=== PATIENT | female | born 2000 | race Caucasian/White ===

== ENCOUNTER 2022-11-11 17:00 | Outpatient (CLI) | payer MEDICAID, SELFPAY | END 2022-11-11 17:01 | disposition home or self-care (01) | PROVIDERS: PCP Family Medicine; Visit Provider Registered Nurse | DX: Z34.93 Encounter for supervision of normal pregnancy, unspecified, third trimester (principal); Z3A.29 29 weeks gestation of pregnancy | CPT/HCPCS: 80306; 86592; 87491; 87591 ==

== ENCOUNTER 2022-11-24 12:55 | Outpatient (CLI) | payer MEDICAID, SELFPAY ==
--- NOTE | 2022-11-24 13:00 | CRLHL7_ITS ---
For Patients: As a result of the Century Cures Act, medical imaging exams and procedure reports are released immediately into your electronic medical record. You may view this report before your referring provider. If you have questions, please contact your health care provider. INDICATION: Third trimester scan, evaluate growth. COVID in . COMPARISON: 09/11/2022 TECHNIQUE: Real time porras scale imaging of the fetus was performed. FINDINGS: Sonographic imaging demonstrates a single living intrauterine gestation. Fetus demonstrates a regular cardiac rate of 129 beats per minute. Fetus has a vertex position. The placenta lies posteriorly without evidence of placenta previa. Amniotic fluid volume appears normal and there is a single deepest vertical pocket: 4.4 cm. The estimated weight is 1814gm which lies at the 56th %. On the prior OB ultrasound exam dated 09/11/2022 the estimated weight was at the 36th%. BPD 86th percentile. HC 52nd percentile. AC 54th percentile. FL 48th percentile. The HC/AC ratio measures 1.08 range (0.96-1.14). IMPRESSION: Sonographic gestational age 32 weeks 1 day and sonographic due date 01/18/2023. Sonographic age is 1 week ahead of the clinical age. Estimated weight 56th percentile. Abdominal circumference 54th percentile. Posterior placenta. No evidence of previa. Dictated by Robert Neal MD @ 11/25/2022 6:52:56 AM (Electronically Signed)
== END 2022-11-24 12:56 | disposition home or self-care (01) ==
PROVIDERS: Visit Provider Registered Nurse
DX: O98.513 Other viral diseases complicating pregnancy, third trimester (principal); U07.1 COVID-19; Z3A.32 32 weeks gestation of pregnancy
CPT/HCPCS: 76816

== ENCOUNTER 2022-12-26 13:49 | Outpatient (CLI) | payer MEDICAID, SELFPAY ==
[2022-12-27 12:03] LABS: Strep B DNA Probe NEGATIVE (Negative)
[2022-12-27 12:05] LABS: Strep B Pen/Amox Allergy No
== END 2022-12-26 13:50 | disposition home or self-care (01) ==
LOC: NFLDREF 13:49
PROVIDERS: Visit Provider Obstetrics & Gynecology
DX: Z34.93 Encounter for supervision of normal pregnancy, unspecified, third trimester (principal); Z3A.37 37 weeks gestation of pregnancy
CPT/HCPCS: 76816; 87081; 87653

== ENCOUNTER 2023-01-08 14:48 | Outpatient (CLI) | payer MEDICAID, SELFPAY ==
[2023-01-08] VITALS (9 sets, daily range): BP systolic 126–140; BP diastolic 62–81; PULSE 85–101; RESP 16; TEMP 36.8; O2SAT 98–99
[2023-01-08 15:25] LABS: Hematocrit 34.4 % (33.0-51.0); Hemoglobin* 11.5 gm/dL (12.0-16.0); Mean Corpuscular HGB Conc 33 gm/dL (32-36); Mean Corpuscular Hemoglobin 29 pg (26-34); Mean Corpuscular Volume 85 fL (80-100); Platelet Count* 279 K/uL (140-440); Red Blood Count 4.04 m/uL (4.00-5.20); White Blood Count* 9.26 K/uL (4.50-11.00)
[2023-01-08 15:42] LABS: Alanine Aminotransferase* 50 U/L (4-35); Aspartate Amino Transferase* 30 U/L (12-35); Blood Urea Nitrogen* 11 mg/dL (5-24); Creatinine* 0.5 mg/dL (0.5-1.5); Estimated Glomerular Filt Rate 135 ml/min
[2023-01-08 15:43] LABS: INR 0.85 (0.91-1.10); Prothrombin Time 12.2 Seconds
[2023-01-08 15:47] LABS: Slide Review Reflex No
[2023-01-08 17:14] LABS: Total Protein Urine < 5 mg/dL
[2023-01-08 17:15] LABS: Creatinine Urine 175.6 mg/dL
--- NOTE | 2023-01-08 18:27 | PC.OBNST ---
NST Note NST Note Start: 01/08/23 14:58 Freq: ONCE Status: Active Protocol: Document 01/08/23 17:55 CUDDYH (Rec: 01/08/23 18:27 CUDDYH [id number]) NST Note 2 Para (# of births) 0 EDC 01/25/23 Gestational Age In Weeks & Days 37 Weeks & 4 Days High Risk Factors High Blood Pressure - Gestational Other Complaints Pt sent from clinic to Center for R/O Pre eclampsia. Reactive Yes Appropriate for Gestational Age Yes RN Mouna Chacon RN Date 01/08/23 Reactive Yes Appropriate for Gestational Age Yes MELISSA Lay RN Date 01/08/23 OB NST charge Yes Complete NST Note via Write Note Yes The provider's electronic signature indicates the NST is reactive/appropriate for gestational age. *Note to provider: If an addendum is required, open the patient's chart and click on the note under the Nurse/Allied Health tab.
== END 2023-01-08 17:55 | disposition home or self-care (01) ==
LOC: OB OUT 14:49 → OB 14:50
PROVIDERS: Visit Provider Obstetrics & Gynecology
DX: O13.3 Gestational [pregnancy-induced] hypertension without significant proteinuria, third trimester (principal); Z3A.37 37 weeks gestation of pregnancy
CPT/HCPCS: 36415; 59025; 82565; 82570; 84156; 84450; 84460; 84520; 85027; 85610; 99213

== ENCOUNTER 2023-01-09 08:33 | Inpatient (IN) | payer MEDICAID, SELFPAY ==
[2023-01-09] VITALS (27 sets, daily range): BP systolic 118–144; BP diastolic 62–84; PULSE 15–99; RESP 16–18; TEMP 36.6–36.9; O2SAT 81–96; BMI 43.3
[2023-01-09 05:30] LABS: Appearance Urine Clear (Clear); Bilirubin Urine Negative (Negative); Blood Urine Negative (Negative); Color Urine Yellow (Yellow); Glucose Urine Negative (Negative); Ketones Urine Negative (Negative); Leukocyte Esterase Urine Negative (Negative); Nitrite Urine Negative (Negative); Protein Urine Negative (Negative); Urobilinogen Urine 0.2 (0.2-1.0)
[2023-01-09 05:37] LABS: Amphetamine Screen Urine Negative (Negative); Barbiturate Screen Urine Negative (Negative); Benzodiazepines Screen Urine Negative (Negative); Cocaine Screen Urine Negative (Negative); Methadone Screen Urine Negative (Negative); Methamphetamines Screen Urine Negative (Negative); Opiate Screen Urine Negative (Negative); Oxycodone Screen Urine Negative (Negative); Phencyclidine Screen Urine Negative (Negative); Tricyclic Antidepressant Urine Negative (Negative)
[2023-01-09 05:48] LABS: Cannabinoid Screen Urine POSITIVE (Negative)
[2023-01-09 06:12] LABS: Hematocrit 35.6 % (33.0-51.0); Hemoglobin* 11.8 gm/dL (12.0-16.0); Mean Corpuscular HGB Conc 33 gm/dL (32-36); Mean Corpuscular Hemoglobin 28 pg (26-34); Mean Corpuscular Volume 86 fL (80-100); Platelet Count* 307 K/uL (140-440); Red Blood Count 4.15 m/uL (4.00-5.20); White Blood Count* 10.41 K/uL (4.50-11.00)
[2023-01-09 06:15] LABS: Slide Review Reflex No
[2023-01-09 06:33] LABS: Creatinine* 0.5 mg/dL (0.5-1.5); Estimated Glomerular Filt Rate 135 ml/min
[2023-01-09 06:34] LABS: Alanine Aminotransferase* 56 U/L (4-35); Aspartate Amino Transferase* 37 U/L (12-35); Blood Urea Nitrogen* 10 mg/dL (5-24)
[2023-01-09 06:34] LABS: Total Protein Urine < 5 mg/dL
[2023-01-09 06:35] LABS: Creatinine Urine 83.1 mg/dL
[2023-01-09 06:36] LABS: Partial Thromboplastin Time* 28 Seconds (23-33)
[2023-01-09 06:40] LABS: INR 0.97 (0.91-1.10); Prothrombin Time 13.5 Seconds
--- NOTE | 2023-01-09 08:40 | P.LDBA_ITS ---
Subjective History of Present Illness Date Seen: 01/09/23 Narrative: Patient is being admitted to Labor and Delivery for option of labor. She is a 22 year old at 37 weeks, 5 days gestation by 1st trimester ultrasound, MICHELLE 01/25/2023. She had elevated blood pressures in clinic yesterday, but extended monitoring on the Center showed normal blood pressures. However, she called the Center early this morning with complaint of headaches and right upper quadrant pain. At home, she reported elevated blood pressure. On extended monitoring in the Center, she had 1 blood pressure of 140/62, and many of the remainders showed systolics in the high 130s. Importantly, her HELLP labs have changed. While platelets, creatinine, and proteinuria have remained normal, transaminases have increased. On 01/08/2023, AST was 30 and ALT 50. Today, AST is 37 and ALT 56. H&P 01/02/23 Dr. Mcadams Specific Issues/Plans Partner: Ace 1. Transfer of care at 29 weeks, [place] 2. 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 UDS 11/11/22: positive for THC.? She has since quit.? 3. COVID in . -07/2022.? Growth u/s at 32 weeks :? normal * Consider growth ultrasound at 36 weeks * 36 wk growth scan: EFW 98%tile, AC 97%tile 4. Low lying placenta at 20 weeks. 1.6cm from os.? Repeat:? no previa 5. Anxiety.? Not medicated.? Increased stress with living situation / financial concerns.? 6. BMI 42.9 at 29 weeks gestation.? Anesthesia consult at 37 weeks.? Weekly NST until delivery, started at 36 weeks.? 7. Varicella non-immune.? Rec. PP vaccine. OB - Problem Based A/P Additional Plan (1) Gestational hypertension: Status: Acute Plan: Cervical ripening followed by induction of labor for gestational hypertension. monitoring per protocol throughout induction, continuous when using oxytocin. HELLP labs to be repeated in 12 hours. Will start magnesium for severe range blood pressures or for labs consistent with diagnosis of HELLP syndrome/severe preeclampsia. (2) COVID-19 affecting in first trimester: Status: Acute (3) BMI 40.0-44.9, adult: Status: Acute Plan Cytotec to be used initially for cervical ripening, with possibility of Cook catheter later in ripening process, should cervix allow. Delivery/Labor/Induction Plan Induction method: per misoprostol protocol OB Exam Physical Exam Vital signs: Temp Pulse Resp BP Pulse Ox 97.9 F 81 18 137/63 96 01/09/23 07:21 01/09/23 08:21 01/09/23 07:21 01/09/23 08:21 01/09/23 05:20 Narrative: Physical exam: General: No acute distress Psych: Alert and oriented x3, full affect HEENT: Normocephalic, atraumatic Neck: No cervical adenopathy, no thyromegaly Heart: Regular rate and rhythm, no murmur rub or gallop Lungs: Clear to auscultation bilaterally Abdomen: Soft, nontender, gravid, cephalic lie, EFW 8 lb by Brendan's Skin: No lesions or rashes Lower extremities: Trace edema, no erythema Pelvic exam: Cervix fingertip, 50%, 0 station, mid position, moderate consistency testing: Baseline 120, accelerations present, no decelerations, moderate variability. Category 1 tracing.
[2023-01-09] MEDS: miSOPROStoL 25 MCG/0.25 TABLET VAGINAL ×3 (09:21→16:05)
--- NOTE | 2023-01-09 14:43 | PC.CPCO ---
Social work: Verbal and written child protection report made to [facility] (spoke with Jennifer) due to positive tox screen for Marijuana on 11/11/22 and 01/09/23.
--- NOTE | 2023-01-09 19:03 | P.OBPN_ITS ---
Subjective Time Seen by Provider: 18:45 Date Seen: 01/09/23 Narrative: Carolynn had her 3rd dose of vaginal misoprostol placed recently. It was delayed due to contractions happening too frequently. She is feeling some crampy pain. Objective Vital Signs: Last Vital Signs Temp 98.2 F 01/09/23 17:54 Pulse 79 01/09/23 17:54 Resp 18 01/09/23 17:54 BP 129/75 01/09/23 17:54 Pulse Ox 81 L 01/09/23 09:26 Pelvic Exam Dilation (cm): 1 Effacement (%): 60 Station: -1 Comments: Still very posterior and with moderate consistency. Contractions Contraction Frequency: Q2 min Contraction pattern: Regular Assessment Assessment: induction ongoing Status: Category l Heart Rate Baseline: 125 Intermediate Variability: Moderate (6-25) Monitor Accelerations: Absent Monitor Decelerations: None Tracing Comments: Reassuring status. Labor Progress: Latent labor, little cervical change after 3 doses vaginal misoprostol. Maternal Status: Gestational HTN. No severe range BP. Plan Plan: Cook catether placed for cervical ripening. First, attempt was made to place catheter without speculum, which was not achievable due to the posterior deviation of the cervix. Next, a [employer] speculum was inserted to aid in placement, but was too short. Finally, along Graves speculum was used to adequately visualize the cervix. A ring forcep was applied to the anterior lip of the cervix, which allowed me apply traction to pass the Cook catheter through the os and into the lower uterine segment. Intrauterine and intravaginal balloons were inflated to 60 cc. Patient tolerated this prolonged procedure with difficulty. Will deflate the balloons as necessary for patient tolerability. Begin pitocin for augmentation. Continuous monitoring with initiation of pitocin. HELLP labs are being drawn presently.
[2023-01-09] MEDS: LACTATED RINGERS 1000 ML 1,000 ML 125 ML IV (19:51)
[2023-01-09 20:54] LABS: Aspartate Amino Transferase* 36 U/L (12-35); Creatinine* 0.5 mg/dL (0.5-1.5); Est. Creatinine Clearance* 176.52; Estimated Glomerular Filt Rate 135 ml/min
[2023-01-09 20:55] LABS: Alanine Aminotransferase* 64 U/L (4-35); Blood Urea Nitrogen* 12 mg/dL (5-24)
[2023-01-09 20:59] LABS: Hematocrit 36.2 % (33.0-51.0); Mean Corpuscular HGB Conc 33 gm/dL (32-36); Mean Corpuscular Hemoglobin 28 pg (26-34); Mean Corpuscular Volume 86 fL (80-100); Platelet Count* 286 K/uL (140-440); Red Blood Count 4.23 m/uL (4.00-5.20); White Blood Count* 11.89 K/uL (4.50-11.00)
[2023-01-09 21:11] LABS: Slide Review Reflex No
[2023-01-09] MEDS: hydrOXYzine pamoate 25 MG CAPSULE 100 MG PO (22:54)
[2023-01-09] MEDS: MORPHINE 10 MG/ML inj IM (22:54)
[2023-01-10] VITALS (34 sets, daily range): BP systolic 111–135; BP diastolic 55–83; PULSE 60–84; RESP 16–18; TEMP 36.4–36.9; O2SAT 96–98
[2023-01-10 06:56] LABS: Hematocrit 34.8 % (33.0-51.0); Hemoglobin* 11.7 gm/dL (12.0-16.0); Mean Corpuscular HGB Conc 34 gm/dL (32-36); Mean Corpuscular Hemoglobin 29 pg (26-34); Mean Corpuscular Volume 86 fL (80-100); Platelet Count* 270 K/uL (140-440); Red Blood Count 4.05 m/uL (4.00-5.20); White Blood Count* 9.81 K/uL (4.50-11.00)
[2023-01-10 06:57] LABS: Slide Review Reflex No
[2023-01-10 07:17] LABS: Creatinine* 0.5 mg/dL (0.5-1.5); Est. Creatinine Clearance* 176.52; Estimated Glomerular Filt Rate 135 ml/min
[2023-01-10 07:18] LABS: Alanine Aminotransferase* 56 U/L (4-35); Aspartate Amino Transferase* 33 U/L (12-35); Blood Urea Nitrogen* 9 mg/dL (5-24)
[2023-01-10] MEDS: LACTATED RINGERS 1000 ML 1,000 ML 500 ML IV (07:53)
[2023-01-10] MEDS: CEFAZOLIN 1 GM inj 3 GM IVP (08:55)
--- NOTE | 2023-01-10 10:00 | PM.OBPRCCS ---
Procedure Pre-op/Post-op diagnoses: Pre-Op/Post-Op Diagnoses Pre-Op Diagnosis: 1. IUP a 37 6/7 weeks 2. Gestational hypertension 3. Section upon Maternal Request Post-Op Diagnosis: 1. Same, now delivered Procedure Done: Global Procedure Details: Procedures Operation Date: 01/10/23 09:00 Actual Procedure Side Surgeon p Section Jolie Bains MD Estimated blood loss (mL): 526 Disposition: floor Anesthesia type: Spinal Complications: None Narrative: NAME OF PROCEDURE: Primary low transverse section. ANESTHESIA: Spinal. COMPLICATIONS: None. QUANTITATIVE BLOOD LOSS: 526mL DRAINS: Uriostegui to gravity. FINDINGS: Live-born female infant, vertex presentation, Apgars 8 and 8 at 1 and 5 minutes respectively. weight 7 lb 6 oz. Bilateral grossly normal tubes and ovaries. PROCEDURE: After obtaining informed consent, the patient was taken to the operating room where spinal anesthesia was obtained and found to be adequate. She was prepared and draped in the normal sterile fashion in the dorsal supine position with a leftward tilt. A Pfannenstiel skin incision was made with a scalpel about 2 cm above symphysis pubic bone, 8-10 cm in length. This incision was carried down to the underlying layer of fascia with the Bovie and scalpel. The fascia was incised in the midline and the incision extended laterally. The rectus muscles were then in the midline. The Yogesh O retractor was then placed into the incision. The lower uterine segment was then incised in a transverse fashion with the scalpel. Upon entry into the uterus, clear amniotic fluid was noted. The uterine incision was extended cephalo caudally with blunt finger fractionation. vertex was brought to incision and with fundal pressure fetus was delivered atraumatically. The cord was doubly clamped and cut after about 3 seconds of delayed cord clamping, and the was handed off the field to warm for evaluation. The placenta was delivered spontaneously with umbilical cord traction and fundal massage. The uterus was cleared of all clots and debris. The uterine incision was reapproximated in a running locking fashion with a 0 Vicryl suture. A 2nd layer of the same suture was used to imbricate in horizontal fashion. The gutters were inspected and cleared of blood clot. All instruments and retractors were removed. The subfascial tissues were carefully inspected and hemostasis assured. The fascia was reapproximated in a running fashion with a looped 0 Vicryl suture. The subcutaneous tissues were inspected and hemostasis was assured. The subcutaneous fat layer was reapproximated with interrupted sutures of 3-0 Vicryl. The skin was closed in a subcuticular fashion with 4-0 Monocryl. LiquiBand and dressing were applied. The patient tolerated the procedure well. Sponge, lap, needle, and instrument counts were reported as correct x2. The patient was taken to the recovery room, awake, and in stable condition. She did receive 3 grams of IV Ancef preoperatively. OB Delivery Proc Additional Procedures Tubal Ligation at the time of : No Other: No
--- NOTE | 2023-01-10 10:29 | P.NB_ITS ---
Nerve Block Nerve Block Time Seen by Provider: 10:29 Type of block requested by surgeon for post-operative analgesia: TAP Side: bilateral Time out performed: Yes Verification of patient name: Yes Verification of date of : Yes Site marking: site marked Name of person performing procedure: Devin Manty Continuous monitoring Was continuous monitoring of O2 sat, B/P, registered nurse cardiac telemetry, recorded every 15 minutes?: Yes Procedure Checklist: sterile prep, needles and gloves Ultrasound guided. Images saved: Yes Medications given in 5ml increments after negative aspiration: Marcaine %: 0.25 mL: 30 and Exparel mL: 10 Patient tolerated procedure well: Yes Block Charges Block Charge (with Pro Fee): TAP Bilateral Use of Ultrasound Machine for Block: Yes- US Guidance/pain block
--- NOTE | 2023-01-10 10:30 | W.ANESCHARGE ---
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
[2023-01-10] MEDS: KETOROLAC 30 MG/ML inj IVP ×2 (15:36→21:40)
[2023-01-10] MEDS: SODIUM CHLORIDE 0.9 % (FLUSH) 10 ML SYRINGE IVF (15:46)
[2023-01-10] MEDS: ENOXAPARIN 40 MG/0.4 ML INJ SUBCUT (21:40)
[2023-01-11] VITALS (8 sets, daily range): BP systolic 116–132; BP diastolic 84–90; PULSE 74–99; RESP 16–18; TEMP 36.7–37; O2SAT 96–98
[2023-01-11] MEDS: KETOROLAC 30 MG/ML inj IVP ×2 (03:16→09:08)
[2023-01-11 06:42] LABS: Basophils Absolute Auto 0.07 K/uL (0.00-0.30); Basophils Percent Auto 0.7 % (0.0-3.0); Eosinophils Absolute Auto 0.08 K/uL (0.00-0.50); Eosinophils Percent Auto 0.8 % (0.0-7.0); Hematocrit 32.7 % (33.0-51.0); Immature Granulocytes Abs Auto 0.15 K/uL (0.00-0.30); Immature Granulocytes Pct Auto 1.5 %; Lymphocytes Absolute Auto 2.89 K/uL (0.90-2.90); Lymphocytes Percent Auto 29.3 % (20-44); Mean Corpuscular HGB Conc 34 gm/dL (32-36); Mean Corpuscular Hemoglobin 29 pg (26-34); Mean Corpuscular Volume 87 fL (80-100); Monocytes Percent Auto 6.8 % (0.0-11.0); Neutrophils Absolute Auto 6.02 K/uL (1.7-7.0); Neutrophils Percent Auto 60.9 % (42.0-72.0); Platelet Count* 284 K/uL (140-440); RDW Coefficient of Variation % 14.3 % (11.5-15.5); Red Blood Count 3.78 m/uL (4.00-5.20); White Blood Count* 9.88 K/uL (4.50-11.00)
[2023-01-11 06:53] LABS: Slide Review Reflex No
[2023-01-11 06:59] LABS: Aspartate Amino Transferase* 38 U/L (12-35); Blood Urea Nitrogen* 10 mg/dL (5-24); Creatinine* 0.6 mg/dL (0.5-1.5); Estimated Glomerular Filt Rate 129 ml/min
[2023-01-11 07:00] LABS: Alanine Aminotransferase* 52 U/L (4-35)
--- NOTE | 2023-01-11 08:59 | PM.OBDSCS1 ---
DS: Providers Provider Date Seen: 01/11/23 Date of admission: 01/09/23 08:33 Primary care physician: Not a Local Provider Admitting Clinician: Zina Mcadams MD Attending Physician on discharge: Jolie Bains MD Date of Discharge: 01/11/23 DS: Diagnosis Discharge Diagnosis (1) Gestational hypertension: Status: Acute Problem details: Blood pressures after delivery have been mildly elevated, not meeting criteria yet to start antihypertensive medications. (2) Status post primary low transverse section: Status: Acute Problem details: Uncomplicated (3) BMI 40.0-44.9, adult: Status: Acute Problem details: Received 1 dose of lovenox after delivery Exam Narrative: Exam Narrative: VITAL SIGNS: As noted above. GENERAL APPEARANCE: Alert, cooperative female in no acute distress. MOOD & AFFECT: Normal. CHEST: CTA X2, RRR of heart ABDOMEN: Soft, non-distended appropriately tender. Uterus well contracted at -1 umbilicus. : Normal lochia. EXTREMITIES: Bilateral pitting edema +1. Well perfused. Nontender. Const: Vital Signs, click to edit/add: Vital Signs - 24 hr 01/10/23 10:00 01/10/23 10:16 01/10/23 10:21 Temperature 97.5 F L Pulse Rate 60 64 Pulse Rate [Pulse Oximeter] Respiratory Rate 18 16 18 Blood Pressure 123/83 118/79 Blood Pressure [Ri ght Arm] Pulse Oximetry 97 96 Oxygen Delivery Me od Room Air Room Air 01/10/23 10:26 01/10/23 10:31 01/10/23 10:36 Temperature Pulse Rate 66 62 65 Pulse Rate [Pulse Oximeter] Respiratory Rate 18 18 18 Blood Pressure 126/83 119/78 118/80 Blood Pressure [Ri ght Arm] Pulse Oximetry 97 97 97 Oxygen Delivery Me thod 01/10/23 10:41 01/10/23 10:43 01/10/23 10:58 Temperature Pulse Rate 73 Pulse Rate [Pulse Oximeter] 74 63 Respiratory Rate 16 18 18 Blood Pressure 132/81 Blood Pressure [Ri ght Arm] 132/81 121/82 Pulse Oximetry 98 97 98 Oxygen Delivery Me thod 01/10/23 11:00 01/10/23 11:13 01/10/23 11:28 Temperature Pulse Rate Pulse Rate [Pulse Oximeter] 66 66 Respiratory Rate 18 18 18 Blood Pressure Blood Pressure [Ri ght Arm] 124/82 135/82 Pulse Oximetry 97 97 Oxygen Delivery Ny thod 01/10/23 11:43 01/10/23 11:58 01/10/23 12:00 Temperature Pulse Rate Pulse Rate [Pulse Oximeter] 84 68 Respiratory Rate 18 18 18 Blood Pressure Blood Pressure [Ri ght Arm] 135/83 134/82 Pulse Oximetry 97 97 Oxygen Delivery Ny thod 01/10/23 12:13 01/10/23 12:28 01/10/23 12:42 Temperature Pulse Rate Pulse Rate [Pulse Oximeter] 67 73 75 Respiratory Rate 18 18 18 Blood Pressure Blood Pressure [Ri ght Arm] 133/76 121/78 129/79 Pulse Oximetry 97 97 97 [facility] 13:00 01/10/23 14:00 01/10/23 15:00 Temperature Pulse Rate Pulse Rate [Pulse Oximeter] Respiratory Rate 18 18 18 Blood Pressure Blood Pressure [Ri ght Arm] Pulse Oximetry [facility]xygen [facility] 01/10/23 16:00 01/10/23 16:18 01/10/23 17:00 Temperature 98.2 F Pulse Rate Pulse Rate [Pulse Oximeter] 74 Respiratory Rate 18 18 18 Blood Pressure Blood Pressure [Ri ght Arm] 125/68 Pulse Oximetry 96 [facility] 01/10/23 17:00 01/10/23 18:00 01/10/23 19:07 Temperature Pulse Rate Pulse Rate [Pulse Oximeter] Respiratory Rate 18 18 18 Blood Pressure Blood Pressure [Ri ght Arm] Pulse Oximetry [facility]xygen [facility] 01/10/23 19:31 01/10/23 19:52 01/10/23 20:31 Temperature 98.4 F Pulse Rate Pulse Rate [Pulse Oximeter] 74 Respiratory Rate 18 16 18 Blood Pressure Blood Pressure [Ri ght Arm] 111/75 Pulse Oximetry 98 [facility]xygen [facility] 01/10/23 21:31 01/10/23 22:43 01/10/23 23:57 Temperature Pulse Rate Pulse Rate [Pulse Oximeter] Respiratory Rate 18 16 16 Blood Pressure Blood Pressure [Ri ght Arm] Pulse Oximetry Oxygen Delivery Ny thod 01/10/23 23:57 01/11/23 00:31 01/11/23 01:19 Temperature 97.6 F Pulse Rate Pulse Rate [Pulse Oximeter] 78 Respiratory Rate 16 16 16 Blood Pressure Blood Pressure [Ri ght Arm] 114/70 Pulse Oximetry 98 Oxygen Delivery Me thod Room Air 01/11/23 02:19 01/11/23 03:09 01/11/23 03:09 Temperature 98.6 F Pulse Rate Pulse Rate [Pulse Oximeter] 99 Respiratory Rate 18 18 16 Blood Pressure Blood Pressure [Ri ght Arm] 132/90 H Pulse Oximetry 98 Oxygen Delivery Me thod Room Air 01/11/23 04:31 01/11/23 05:31 01/11/23 06:31 Temperature Pulse Rate Pulse Rate [Pulse Oximeter] Respiratory Rate 18 18 18 Blood Pressure Blood Pressure [Ri ght Arm] Pulse Oximetry Oxygen Delivery Me thod 01/11/23 08:20 01/11/23 08:20 Temperature 98.1 F Pulse Rate Pulse Rate [Pulse Oximeter] 74 Respiratory Rate 16 16 Blood Pressure Blood Pressure [Ri ght Arm] 116/84 Pulse Oximetry 97 Oxygen Delivery Me thod Room Air DS: Data Data Completed and Pending Labs on day of discharge: Labs from last 24 hours 01/11/23 06:16 WBC 9.88 RBC 3.78 L Hgb 11.0 L Hct 32.7 L MCV 87 MCH 29 MCHC 34 RDW Coeff of Manuela 14.3 Plt Count 284 Neut % (Auto) 60.9 Lymph % (Auto) 29.3 [place] % (Auto) 6.8 Eos % (Auto) 0.8 Baso % (Auto) 0.7 Neut # (Auto) 6.02 Lymph # (Auto) 2.89 [place] # (Auto) 0.70 Eos # (Auto) 0.08 Baso # (Auto) 0.07 BUN 10 Creatinine 0.6 Estimated Creat Clear 147.10 Estimated GFR 129 AST 38 H ALT 52 H OB - DS: Summary Hospital Course Hospital Course: The patient is a 22 year old G 2 P 1011 at 37 6/7 weeks gestation that was admitted to the Center on 01/09/23 for IOL after GHTN diagnosis. Patient did not tolerate initial attempts at IOL and she requested a primary delivery. She had an uncomplicated delivery. She delivered a viable female . She is breast feeding. Unfortunately baby developed progressive respiratory distress a couple of hours after delivery requiring additional respiratory support interventions reason for which baby was transferred to NICU at [facility]. Parents have requested early discharge to be able to be close to . 24 hours after delivery patient has been able to ambulate on her own, urinating w/o difficulty, has passed gas and has good pain control. Blood pressures have remained only mildly elevated not meeting criteria for antihypertensive treatment. Preeclampsia labs remarkable for mild transaminitis that has never met criteria for severity and have remained stable, she does need follow up of levels within 3-5 days. Otherwise physical exam at this moment normal and I agree with discharge at this time in the setting of at NICU. Time spent discussing smoking cessation with patient: more than 10 minutes Peripartum Data Procedures: Procedures Operation Date: 01/10/23 09:00 Actual Procedure Side Surgeon p Section Jolie Bains MD complications: other ([place] transferred to NICU) Infant Gender: Female Infant Discharge Plan: Transferred to NICU Status at Discharge Functional status at discharge: independent ambulation Overall status at discharge: patient is progressing back to baseline Time Spent with Patient Time attestation: Total time spent providing and/or coordinating discharge services: Time spent: Greater than 30 minutes Discharge Plan Discharge Disposition: Home, Self-Care Date of Admission: 01/09/23 08:33 Attending Provider on Discharge: Jolie Bains Primary Care Provider: Provider,Not a Local Condition: Stable Anticipated Discharge Date/Time: 01/11/23 09:10 Discharge Medications: New acetaminophen 500 mg Tablet 1,000 mg PO Q6H PRN (Reason: Pain) Qty: 30 0RF docusate sodium 100 mg Capsule 100 mg PO DAILY Qty: 30 0RF ibuprofen 600 mg Tablet 600 mg PO Q6H PRN (Reason: Pain) Qty: 30 0RF simethicone 80 mg Tablet,Chewable 80 - 160 mg PO Q4H PRN (Reason: Gas) Qty: 15 0RF Continued PNV-DHA 27 mg iron-1 mg -300 mg capsule 2 cap PO .once daily calcium carbonate [Tums] 200 mg calcium (500 mg) tablet,chewable 200 mg PO BID Discontinued acetaminophen [Tylenol Extra Strength] 500 mg tablet 1,000 mg PO Q6H PRN No Action oxycodone 5 mg tablet 5 - 10 mg PO Q4-6H PRN (Reason: Pain) Qty: 15 0RF Discharge Orders: Discharge Order (Routine); Ordered 01/11/23 Ordered By: Jolie Bains Patient Education: OB High Blood Pressure DC, OB Over the Counter Medication Information, OB /Bottle Feeding, OB /Breast Feeding Activity Level: Activity as Tolerated Discharge Diet: Regular Follow Up Appointments: Provider,Not a Local [Primary Care Provider] - Forms: [facility] Info Instructions
[2023-01-11] MEDS: DOCUSATE SODIUM 100 MG CAPSULE PO (09:07)
== END 2023-01-11 10:38 | disposition home or self-care (01) | DRG 788 ==
LOC: OB OUT 08:34 → OB 08:34
PROVIDERS: Obstetrics & Gynecology; Admitting Provider Obstetrics & Gynecology; Visit Provider Obstetrics & Gynecology
PROC: 10D00Z1 Extraction of Products of Conception, Low, Open Approach (ICD-10-PCS; CPT 59514; principal; 2023-01-10 08:45)
DX: O13.4 Gestational [pregnancy-induced] hypertension without significant proteinuria, complicating childbirth (principal); O99.324 Drug use complicating childbirth; F12.91 Cannabis use, unspecified, in remission; Z59.9 Problem related to housing and economic circumstances, unspecified; O99.344 Other mental disorders complicating childbirth; F41.9 Anxiety disorder, unspecified; Z3A.37 37 weeks gestation of pregnancy; Z37.0 Single live birth
CPT/HCPCS: 01961; 36415; 59200; 76942; 80306; 81003; 82565; 82570; 84156; 84450; 84460; 84520; 85018; 85025; 85027; 85610; 85730; 86850; 86900; 86901; 88307; 99140; A9270; C1726; J0690; J1100; J1200; J1650; J1885; J2270; J2274; J2370; J2405; J2590; J7120

== ENCOUNTER 2024-09-11 08:58 | Emergency (ER) | payer MEDICAID, SELFPAY ==
--- OUTSIDE RECORDS SUMMARY | 2024-09-11 09:00 | XMS_ITS | Clinical Summary ---
Author Organization [facility] s & [employer] ([employer])[facility] Affiliates Address [place], [place] [address] Care Team Providers Care Manager Park Name Role Phone Pcp, No Primary Care Provider Unavailabl e Allergies Active Allergy Reactions Criticality Noted Date Comments Copper Rash Low 03/11/2022 Medications vitamin-iron fumarate-folic acid (PNV-Select) 27-1 mg tabIndications:Pr imigravida in first trimester Take 1 Tablet by mouth once daily. 90 Tablet 2 Active metoclopramide HCl (REGLAN) 5 mg tabletIndications :Nausea and vomiting in Take 1-2 Tablets (5-10 mg) by mouth four times daily before meals and at bedtime. 120 Tablet 3 2 Active Blood Pressure Monitor KitIndications:El evated blood pressure reading without diagnosis of hypertension Frequency of testing: every other day, notify if BP is > 140/90. 1 Each 3 Active Active Problems Problem Noted Date Diagnosed Date care, subsequent 06/20/2022 Pap smear for cervical cancer screening 03/11/20 22 Overview (05/19/2022): Plan: Pap and HPV 03/2027 Resolved Problems Problem Noted Date Diagnosed Date Resolved Date Encounter for supervision pr egnancy in primigravida, antepartum 06/16/2022 06/20/2022 Overview (06/16/2022): Varicella non immune Immunizations Name Administration Dates Next Due DTaP 06/12/2000,04/22/2000,02/18/2000 DTaP-HIB (TriHIBIT) 03/24/2001 HIB PRP-T (ActHIB,Hiberix) 06/12/2000,04/22/2000 ,02/18/2000 Hepatitis B (Adult) 10/22/2000,06/12/2000,1999 Inactivated Polio Vaccine 10/22/2000,04/22/2000, 02/18/2000 Influenza, IIV4 06/13/2022 MMR 03/24/2001 Pneumococcal conj 7-Valent ( Prevnar 7) 03/24/2001,06/12/2000,04/22/2000,1999 Varicella Vaccine 03/24/2001 Family History Medical History Relation Name Comments Anxiety disorder Brother Depression Brother Sleep disorder Brother No Known Problems Daughter Alcoholism Father No Known Problems Half-Brother No Known Problems Half-Sister No Known Problems Maternal Aunt No Known Problems Maternal Grandfather Diabetes Maternal Grandmother Lisa Mcmillan Hypothyroidism Maternal Grandmother Lisa Mcmillan Melanoma Maternal Grandmother Lisa Mcmillan Obesity Maternal Grandmother Lisa Mcmillan Sleep apnea Maternal Grandmother Lisa Mcmillan No Known Problems Maternal Uncle Alcoholism Mother Eli Pimentel Anxiety disorder Mother Eli Pimentel Obesity Mother Eli Pimentel Sleep disorder Mother Eli Pimentel No Known Problems Other No Known Problems Paternal Aunt No Known Problems Paternal Grandfather No Known Problems Paternal Grandmother No Known Problems Paternal Uncle No Known Problems Sister No Known Problems Son Relation Name Status Comments Brother Alive Daughter Father Half-Brother Half-Sister Maternal Aunt Maternal Grandfather Maternal Grandmother Lisa Mcmillan Alive Maternal Uncle Mother Eli Pimentel Alive Other Paternal Aunt Paternal Grandfather Paternal Grandmother Paternal Uncle Sister Son Social History Tobacco Use Types Packs/Day Years Used Date Smoking Tobacco: Never Smokeless Tobacco: Never Alcohol Use Standard Drinks/Week Comments Not Currently 0 (1 standard drink = 0.6 oz pur e alcohol) PHQ-2 Answer Date Recorded PHQ-2 TOTAL SCORE 1 06/12/2022 Social Connections Answer Date Recorded Frequency of Communication with Friends and Fami ly Not on file 05/22/2023 Financial Resource Strain Answer Date R ecorded Difficulty of Paying Living Expenses 1 05/29/2022 Difficulty of Paying Living Expenses 2 05/29/2022 Food Insecurity Answer Date Recorded Worried About Running Out of Food in the Last Ye ar 1 05/29/2022 Transportation Needs Answer Date Record ed Lack of Transportation (Medical) 1 05/29/2022 Housing Stability Answer Date Recorded Unable to Pay for Housing in the Last Year 1 05/29/2022 Comments No Sex and Gender Information Value Date Recorded Sex Assigned at Not on file 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 Gender Identity Not on file Sexual Orientation Not on file Obstetrics History Para Term AB IAB SAB Ectopic Multiple Livin g Live Births 2 1 Date Outcome GA Total Labor Labor/2nd/3rd Weight Sex Type Anes PTL Willa A1 A5 Name Clin 06/19 AB ELECTIVE AB Last Filed Vital Signs Vital Sign Reading Time Taken Comments Blood Pressure 152/89 01/29/2023 3:02 PM CDT Pulse 90 01/29/2023 3:02 PM CDT Temperature 36.9 C (98.4 F) 01/29/2023 3:02 PM CDT Respiratory Rate 18 01/29/2023 3:02 PM CDT Oxygen Saturation 97% 01/29/2023 3:02 PM CDT Inhaled Oxygen Concentration - - Weight 118.4 kg (261 lb) 01/29/2023 2:59 PM CDT Height 165.1 cm (5' 5) 01/29/2023 2:59 PM CDT Body Mass Index 43.43 01/29/2023 2:59 PM CDT Plan of Treatment Health Maintenance Due Date Last Done Comments Tdap 12/10/2010 HPV series for age 9-26 (1 - 3-dose series) 12/10/2014 Tetanus booster 2019 Chlamydia for age 16-24 03/11/2023 03/11/2022 Depression screening for age 12+ 06/13/2023 06/13/2022, 06/13/2022, 06/13/2022 BMI (ht and wt on same day) for age 18+ 08/11/2023 08/11/2022, 03/11/2022 COVID-19 vaccine series (2023- season) 2024 Influenza for age 9-49 05/08/2024 06/13/2022 Pap test for age 21-65 03/11/2027 03/11/2022, 2021 Pneumococcal series for age 6-49 Aged Out 03/24/2001, 06/12/2000, 04/22/2000, Additional history exists No longer eligible based on patient's age to complete this topic HIV for age 15-65 Completed 06/13/2022, 03/11/2022 Hepatitis C screening for age 18-79 Completed 06/13/2022, 03/11/2022 Procedures Procedure Name Priority Date/Time Associated Diagnosis Comments ANTI HIV 1/2 Routine 06/13/2022 3:00 PM CDT Primigravida in first trimester ANTI HCV Routine 06/13/2022 3:00 PM CDT Primigravida in first trimester GC CHLAMYDIA TRACH PROBE Routine 03/11/2022 2:53 PM CDT Vaginal odor HPV HIGH RISK Routine 03/11/2022 2:53 PM CDT Cervical cancer screening from Last 3 Months or Most Recently Relevant to Health Maintenance Results * ANTI HCV (06/13/2022 3:00 PM CDT) HEPATITIS C ANTIBODY Non-React patricia Non-React patricia 06/14/2022 9:06 PM CDT [facility] Comment:Antibodies to HCV no t detected; does not exclude the possibility of exposure to HCV. Blood BLOOD SPECIMEN / Unknown Venipuncture / Unknown 06/13/2022 3:00 PM CDT 06/13/2022 3:03 PM CDT us Cely Vallejo MD SEND OUTS Final Resu lt [facility] [address] [place] [address], * ANTI HIV 1/2 (06/13/2022 3:00 PM CDT) HIV-1/HIV-2 ANTIBODY Non-Reacti ve Non-Reacti ve 06/14/2022 8:58 PM CDT [facility] Comment:HIV-1 p24 and HIV-1/ HIV-2 Ab not detected. Blood BLOOD SPECIMEN / Unknown Venipuncture / Unknown 06/13/2022 3:00 PM CDT 06/13/2022 3:03 PM CDT Cely Vallejo MD SEND OUTS Final Resu lt [facility] [address] [place] [address], * GC CHLAMYDIA TRACH PROBE (03/11/2022 2:53 PM CDT) CHLAMYDIA PROBE Negative 7:14 PM CDT [facility] N GONORRHOEAE PROBE Negative 03/12/2022 7:14 PM CDT [facility] Other ENDOCERVICAL CYTOLOGIC MATERIAL / Unknown Non-Blood / Unknown 03/11/2022 2:53 PM CDT 03/11/2022 6:15 PM CDT us Jerrell Mathur DO MICROBIOLOGY Final Res ult Performing Organization Address City/[facility]/ZIP Co de Phone Number [facility] [address] [place] [address], * HPV HIGH RISK (03/11/2022 2:53 PM CDT) TYPE 16 Negative Negative 03/14/2022 2:05 PM CDT [facility] TYPE 18 Negative Negative 03/14/2022 2:05 PM CDT [facility] OTHER HIGH RISK TYPES Negative Negative 03/14/2022 2:05 PM CDT [facility] Other (Cervical) Non-Blood / Unknown 03/11/2022 2:53 PM CDT 03/12/2022 5:17 PM CDT Narrative [facility] - 03/14/2022 2:05 PM CDT HPV types 16, 18, 31, 33, 35, 39, 45, 51, 52, 56, 58, 59, 66 and 68 DNA were undetectable or below the pre-set threshold. Methodology: Aj Maite 4800 HPV Test us Jerrell Mathur DO MICROBIOLOGY Final Res ult [facility] [address] [place] [address], [place] from Last 3 Months or Most Recently Relevant to Health Maintenance Insurance [facility] Care Teams Manager Park Relationship Specialty Start Date End Date Pcp, No . PCP - General 03/11/22
[2024-09-11 09:09] VITALS: BP 116/75; PULSE 101; RESP 18; TEMP 36.3; O2SAT 97; BMI 44.8
--- NOTE | 2024-09-11 09:32 | ED_ITS ---
HPI - General Adult General Date Seen: 09/11/24 Chief complaint: Abdominal Pain Stated complaint: Abdominal pain Time Seen by Provider: 09/11/24 09:17 History of Present Illness HPI narrative: 23-year-old female with a past medical history of previous , 1 previous elective , elevated BMI, coronavirus with lung COVID a couple of years ago, presenting to the ER today with abdominal pain, vaginal spotting, also fever and chills. Related Data Home Medications ?Medication ?Instructions ?Recorded ?Confirmed multivitamin no.47-iron fum 27 2 cap PO .once daily 11/24/22 01/09/23 mg-folate no.1 1 mg-dha 300 mg capsule (PNV-DHA) calcium carbonate (Tums) 200 mg PO BID 12/12/22 01/09/23 Previous Rx's ?Medication ?Instructions ?Recorded acetaminophen 500 mg tablet 1,000 mg (2 x 500 mg) PO Q6H PRN 01/11/23 Pain #30 tabs metoclopramide HCl 10 mg tablet 10 mg PO Q6H PRN nausea and 09/11/24 (Reglan) vomiting #14 tabs Allergies Allergy/AdvReac Type Severity Reaction Status Date / Time copper Allergy Intermediate rash Verified 01/09/23 06:16 adhesive tape Allergy Mild Rash Verified 09/11/24 09:09 PFSH PFS Medical History COVID ?U07.1 - COVID-19 (ICD-10) Marijuana use ?F12.90 - Cannabis use, unspecified, uncomplicated (ICD-10) Surgical History (Updated 02/17/23 @ 00:00 by Background Saray) Elective ?Z33.2 - Encounter for elective termination of (ICD-10) Family History (Updated 01/02/23 @ 12:15 by Zina Mcadams MD) Mother Alcohol dependence Anxiety Sleep apnea Obesity Thyroid disease Father Alcohol dependence Brother Sleep apnea Anxiety Maternal Grandmother Diabetes Thyroid disease Melanoma Obesity Other Depression Sleep disorder Social History (Updated 01/02/23 @ 12:16 by Zina Mcadams MD) Narrative: Lives in [place] with boyfriend of 7 years. Currently unemployed. Doesn't smoke. Stopped marijuana. Smoking Status: Unknown if ever smoked Exam Narrative: Exam Narrative: Constitutional: Appears well-developed and well-nourished. Alert. Conversant. Non toxic. HENT: Head: Atraumatic. Nose: Nose normal. Mouth/Throat: Oral mucosa is clear and moist. no trismus. Pharynx minimally erythematous. Tonsils symmetric. No tonsillar enlargement, erythema, or exudate. Uvula midline. Eyes: Conjunctivae normal. EOM normal. Pupils equal, round, and reactive to light. No scleral icterus. Neck: Normal range of motion. Neck supple. No tracheal deviation present. Cardiovascular: Normal rate, regular rhythm. No gallop. No friction rub. No murmur heard. Symmetric radial artery pulses Pulmonary/Chest: Effort normal. No stridor. No respiratory distress. No wheezes. No rales. No rhonchi . No tenderness. Abdominal: Soft. Bowel sounds normal. No distension. No mass. Mild left lower quadrant and right lower quadrant tenderness. No rebound. No guarding. No CVA tenderness. Musculoskeletal: RUE: Normal range of motion. No tenderness. No deformity LUE: Normal range of motion. No tenderness. No deformity RLE: Normal range of motion. No edema. No tenderness. No deformity LLE: Normal range of motion. No edema. No tenderness. No deformity Lymph: No cervical adenopathy. Neurological: Alert and oriented to person, place, and time. Normal strength. CN II-VII intact. No sensory deficit. GCS eye subscore is 4. GCS verbal subscore is 5. GCS motor subscore is 6. Normal coordination Skin: Skin is warm and dry. No rash noted. No pallor. Normal capillary refill. Psychiatric: Normal mood. Normal affect. Const: Vital Signs, click to edit/add: Vital Signs - 24 hr 09/11/24 09:09 Temperature 97.3 F L Pulse Rate [Pulse Oximeter] 101 H Respiratory Rate 18 Blood Pressure [Ri ght Upper Arm] 116/75 Pulse Oximetry 97 Oxygen Delivery Me thod Room Air Course Course ED Course: Recheck-body aches are improved after Tylenol. She feels comfortable managing at home. Vital Signs Vital signs: Initial Vital Signs Temperature 97.3 F L 09/11/24 09:09 Temperature Source Temporal Artery Scan 09/11/24 09:09 Pulse Rate 101 H 09/11/24 09:09 Pulse Rhythm Regular 09/11/24 09:09 Respiratory Rate 18 09/11/24 09:09 Blood Pressure 116/75 09/11/24 09:09 Blood Pressure Mean 88 09/11/24 09:09 Blood Pressure Position Sitting 09/11/24 09:09 Pulse Oximetry 97 09/11/24 09:09 Oxygen Delivery Method Room Air 09/11/24 09:09 Vital Signs Temperature 97.3 F L 09/11/24 09:09 Pulse Rate 101 H 09/11/24 09:09 Respiratory Rate 18 09/11/24 09:09 Blood Pressure 116/75 09/11/24 09:09 Pulse Oximetry 97 09/11/24 09:09 Oxygen Delivery Method Room Air 09/11/24 09:09 Temperature 97.3 F L 09/11/24 09:09 Pulse Rate 101 H 09/11/24 09:09 Respiratory Rate 18 09/11/24 09:09 Blood Pressure 116/75 09/11/24 09:09 Pulse Oximetry 97 09/11/24 09:09 Oxygen Delivery Method Room Air 09/11/24 09:09 Medications Administered Medications: Discontinued Medications Generic Name Dose Route Start Last Admin Trade Name Ascencion PRN Reason Stop Dose Admin Acetaminophen 1,000 mg 09/11/24 09:48 09/11/24 11:40 Acetaminophen 500 Mg Tablet PO 09/11/24 09:49 1,000 mg ONCE ONE Administration Ondansetron HCl 4 mg 09/11/24 09:48 09/11/24 11:40 Ondansetron Odt 4 Mg Tab PO 09/11/24 09:49 4 mg ONCE ONE Administration Medical Decision Making MDM Narrative Medical decision making narrative: In terms of her chills, differential is broad including viral infection such as COVID, influenza. She does not not have any abnormal lung findings is to suggest bacterial pneumonia. Also consider possible UTI, intra-abdominal infections, less likely would be septic . She is positive for cor onavirus based on nasopharyngeal PCR. I had a long discussion about COVID with the patient and her . We discussed possible treatment with Paxlovid. She would be considered a high risk category because of her current . She would potentially be in the window for Paxlovid since she probably started having symptoms 2 days ago on Thursday. Ultimately she would prefer to avoid Paxlovid. I think that is reasonable. Precaution to return to the ER if she has worsening symptoms of COVID, especially shortness of breath or hypoxia. She is also having vaginal spotting and pelvic cramping. She is currently 1st trimester and LMP was July 18 which puts her at about 7 weeks 6 days. Quantitative hCG confirms that she is . Blood type is O positive per records. I considered a broad differential including ectopic , ovarian cyst, UTI, pyelonephritis, subchorionic hemorrhage, uterine bleeding, active miscarriage, constipation, etc. Non gynecologic causes considered included , appendicitis, cholecystitis, volvulus, intraabdominal abscess, among others. In this patient, there are no signs of serious etiologies of abdominal pain. The workup here suggests threatened miscarriage. She does have a viable IUP with a normal heart rate. There is a subchorionic hemorrhage. At this point, patient is hemodynamically stable, hemoglobin is reassuring, and bleeding is not predicted to become life threatening. Plan is home, close follow-up with OB, threatened miscarriage precautions, and return to ED for worsening pain, heavy vaginal bleeding (more than 1 pad soaked every hour). Questions were answered. Lab Data Labs: Lab Results 09/11/24 09/11/24 Range/Units 11:05 Unknown WBC 6.82 (4.50-11.00) K/uL RBC 4.89 (4.00-5.20) m/uL Hgb 13.6 (12.0-16.0) gm/dL Hct 40.1 (33.0-51.0) % MCV 82 (80-100) fL MCH 28 (26-34) pg MCHC 34 (32-36) gm/dL RDW Coeff of Manuela 13.3 (11.5-15.5) % Plt Count 313 (140-440) K/uL Neut % (Auto) 76.4 H (42.0-72.0) % Lymph % (Auto) 8.2 L (20-44) % Boyle % (Auto) 13.3 H (0.0-11.0) % Eos % (Auto) 0.0 (0.0-7.0) % Baso % (Auto) 1.2 (0.0-3.0) % Neut # (Auto) 5.20 (1.7-7.0) K/uL Lymph # (Auto) 0.60 L (0.90-2.90) K/uL Boyle # (Auto) 0.90 (0.00-0.90) K/UL Eos # (Auto) 0.00 (0.00-0.50) K/uL Baso # (Auto) 0.08 (0.00-0.30) K/uL Abs Immat Gran (auto) 0.06 (0.00-0.30) K/uL Imm/Tot Granulo (auto) 0.9 % Sodium 136 (135-149) mmol/L Potassium 3.6 (3.6-5.1) mmol/L Chloride 105 (96-114) mmol/L Carbon Dioxide 21 (20-32) mmol/L Anion Gap 10 (7-15) mEq/L BUN 6 (5-24) mg/dL Creatinine 0.5 (0.5-1.5) mg/dL Estimated Creat Clear 156.12 Estimated GFR 134 ml/min Glucose 99 (60-115) mg/dL Calcium 9.1 (8.4-10.6) mg/dL HCG, Quant 81594.00 mIU/mL Urine Color Yellow (Yellow) Urine Appearance Clear (Clear) Urine pH 6.0 (5.0-8.5) Ur Specific [place] 1.025 (1.000-1.030) Urine Protein 1+ A (Negative) Urine Glucose (UA) Negative (Negative) Urine Ketones 1+ A (Negative) Urine Blood Negative (Negative) Urine Nitrite Negative (Negative) Urine Bilirubin Negative (Negative) Urine Urobilinogen 0.2 (0.2-1.0) Ur Leukocyte Esterase Negative (Negative) Urine RBC 0-2 (0-2) Urine WBC 2-5 (0-5) Ur Squamous Epith Cells Few (None-Few) Urine Bacteria Few A (None) Urine Mucus Moderate A (None) SARS-CoV-2 (PCR) POSITIVE SARS-CoV-2 A (Negative) Influenza Type A (PCR) Negative PCR FLU A (Negative) Influenza Type B (PCR) Negative PCR FLU B (Negative) RSV (PCR) Negative PCR RSV (Negative) Imaging Data US pelvic: Attestation: I have reviewed the pertinent imaging results. My impression: Overall report from the magnetic testing technician is that the patient does have an intrauterine with a normal heart rate and a small subchorionic hemorrhage. Radiologist's impression: IMPRESSION: 1. Single viable intrauterine with estimated gestational age of 6 weeks and 5 days by crown-rump length, and estimated due date of 05/02/2025. 2. Findings compatible with a small amount of subchorionic hemorrhage. Discharge Plan Discharge Clinical Impression: COVID-19, Threatened Patient Disposition: Home, Self-Care Condition: Stable Instructions: Threatened Miscarriage (ED), COVID-19 (Coronavirus Disease 2019) (ED), COVID-19: Slow the Coronavirus Spread (ED) Additional Instructions: As we discussed, please call the Ob clinic tomorrow morning to move up your appointment. Try to arrange a recheck to occur in 4-5 days. If you have worsening symptoms, come back to the ER right away. Especially come back to the ER right away if you have heavier bleeding, worsening pelvic cramping, new trouble breathing or high fever. Use Tylenol to treat the fever from COVID. Drink plenty of fluids and try to stay hydrated. Eat healthy foods is your able. Use the nausea medication as needed Prescriptions: New metoclopramide HCl [Reglan] 10 mg tablet 10 mg PO Q6H PRN (Reason: nausea and vomiting) Qty: 14 0RF No Action PNV-DHA 27 mg iron-1 mg -300 mg capsule 2 cap PO .once daily calcium carbonate [Tums] 200 mg calcium (500 mg) tablet,chewable 200 mg PO BID acetaminophen 500 mg Tablet 1,000 mg PO Q6H PRN (Reason: Pain) Qty: 30 0RF Follow Up/Referrals: Provider,Not a Local [Primary Care Provider] - Stand Alone Forms: [facility] [place] Info Instructions
--- NOTE | 2024-09-11 09:48 | CRLHL7_ITS ---
For Patients: As a result of the Century Cures Act, medical imaging exams and procedure reports are released immediately into your electronic medical record. You may view this report before your referring provider. If you have questions, please contact your health care provider. INDICATION: Abnormal vaginal bleeding in early . TECHNIQUE: Transabdominal and transvaginal limited obstetric ultrasound examination of the pelvis was performed. Grayscale and color Doppler images were obtained. COMPARISON: None. FINDINGS: Uterus: Normal in echotexture. No suspicious masses. Endometrium: No significant endometrial free fluid. Intrauterine gestation: Yes. Mean sac diameter of 1.7 cm. Estimated gestational age of 6 weeks and 4 days. cardiac activity: Yes. 125 bpm. [place]-rump length: 8 mm. Estimated gestational age of 6 weeks and 5 days. Yolk sac: Normal. Perigestational hemorrhage: Probable small focus of subchorionic hemorrhage measuring 1.0 x 1.0 x 1.0 cm. Estimated sonographic due date: 05/02/2025. Right Ovary: Measures 2.8 x 1.4 x 1.6 cm. No suspicious masses. Normal arterial and venous flow on color Doppler imaging. Left ovary: Measures 3.2 x 2.1 x 2.0 cm. Probable corpus luteal cyst. No suspicious masses. Normal arterial and venous flow on color Doppler imaging. Cul-de-sac: No free fluid. IMPRESSION: 1. Single viable intrauterine with estimated gestational age of 6 weeks and 5 days by crown-rump length, and estimated due date of 05/02/2025. 2. Findings compatible with a small amount of subchorionic hemorrhage. Dictated by Darwin Foley MD @ 09/11/2024 11:46:15 AM (Electronically Signed)
[2024-09-11 11:11] LABS: Appearance Urine Clear (Clear); Bilirubin Urine Negative (Negative); Blood Urine Negative (Negative); Color Urine Yellow (Yellow); Glucose Urine Negative (Negative); Ketones Urine 1+ (Negative); Leukocyte Esterase Urine Negative (Negative); Nitrite Urine Negative (Negative); Protein Urine 1+ (Negative); Specific Gravity Urine 1.025 (1.000-1.030); Urobilinogen Urine 0.2 (0.2-1.0)
[2024-09-11 11:11] LABS: Basophils Absolute Auto 0.08 K/uL (0.00-0.30); Basophils Percent Auto 1.2 % (0.0-3.0); Hematocrit 40.1 % (33.0-51.0); Hemoglobin* 13.6 gm/dL (12.0-16.0); Immature Granulocytes Abs Auto 0.06 K/uL (0.00-0.30); Immature Granulocytes Pct Auto 0.9 %; Lymphocytes Percent Auto 8.2 % (20-44); Mean Corpuscular HGB Conc 34 gm/dL (32-36); Mean Corpuscular Hemoglobin 28 pg (26-34); Mean Corpuscular Volume 82 fL (80-100); Monocytes Percent Auto 13.3 % (0.0-11.0); Neutrophils Percent Auto 76.4 % (42.0-72.0); Platelet Count* 313 K/uL (140-440); RDW Coefficient of Variation % 13.3 % (11.5-15.5); Red Blood Count 4.89 m/uL (4.00-5.20); Slide Review Reflex No; White Blood Count* 6.82 K/uL (4.50-11.00)
--- OUTSIDE RECORDS SUMMARY | 2024-09-11 11:11 | XMS_ITS | Clinical Summary ---
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 Blood BLOOD SPECIMEN / Unknown Venipuncture / Unknown 06/13/2022 3:00 PM CDT 06/13/2022 3:03 PM CDT us Cely Vallejo MD SEND OUTS Final Resu lt [facility] [address] [place] [address], * ANTI HIV 1/2 (06/13/2022 3:00 PM CDT) HIV-1/HIV-2 ANTIBODY Non-Reacti ve Non-Reacti ve 06/14/2022 8:58 PM CDT [facility] Comment:HIV-1 p24 and HIV-1/ HIV-2 Ab not detected. Blood BLOOD SPECIMEN / Unknown Venipuncture / Unknown 06/13/2022 3:00 PM CDT 06/13/2022 3:03 PM CDT Cely Vallejo MD SEND OUTS Final Resu lt [facility] [address] [place] [address], * GC CHLAMYDIA TRACH PROBE (03/11/2022 2:53 PM CDT) CHLAMYDIA PROBE Negative 7:14 PM CDT [facility] N GONORRHOEAE PROBE Negative 03/12/2022 7:14 PM CDT [facility] Other ENDOCERVICAL CYTOLOGIC MATERIAL / Unknown Non-Blood / Unknown 03/11/2022 2:53 PM CDT 03/11/2022 6:15 PM CDT us Jerrell Mathur DO MICROBIOLOGY Final Res ult Performing Organization Address City/[facility]/ZIP Co de Phone Number [facility] [address] [place] [address], * HPV HIGH RISK (03/11/2022 2:53 PM CDT) TYPE 16 Negative Negative 03/14/2022 2:05 PM CDT [facility] TYPE 18 Negative Negative 03/14/2022 2:05 PM CDT [facility] OTHER HIGH RISK TYPES Negative Negative 03/14/2022 2:05 PM CDT [facility] Other (Cervical) Non-Blood / Unknown 03/11/2022 2:53 PM CDT 03/12/2022 5:17 PM CDT Narrative [facility] - 03/14/2022 2:05 PM CDT HPV types 16, 18, 31, 33, 35, 39, 45, 51, 52, 56, 58, 59, 66 and 68 DNA were undetectable or below the pre-set threshold. Methodology: Aj Maite 4800 HPV Test us Jerrell Mathur DO MICROBIOLOGY Final Res ult [facility] [address] [place] [address], [place] from Last 3 Months or Most Recently Relevant to Health Maintenance Insurance [facility] Care Teams License And Permit Specialist Relationship Specialty Start Date End Date Pcp, No . PCP - General 03/11/22
[2024-09-11 11:17] LABS: Bacteria Urine Few; RBC Urine 0-2 (0-2); Squamous Epithelial Cell Urine Few (None-Few)
[2024-09-11 11:18] LABS: Mucus Urine Moderate
[2024-09-11 11:24] LABS: Chloride* 105 mmol/L (96-114); Potassium* 3.6 mmol/L (3.6-5.1); Sodium* 136 mmol/L (135-149)
[2024-09-11 11:27] LABS: Anion Gap 10 mEq/L (7-15); Blood Urea Nitrogen* 6 mg/dL (5-24); Carbon Dioxide* 21 mmol/L (20-32); Creatinine* 0.5 mg/dL (0.5-1.5); Est. Creatinine Clearance* 156.12; Estimated Glomerular Filt Rate 134 ml/min; Glucose* 99 mg/dL (60-115)
[2024-09-11 11:28] LABS: Calcium* 9.1 mg/dL (8.4-10.6)
[2024-09-11] MEDS: ACETAMINOPHEN 500 MG TABLET 1000 MG PO (11:40)
[2024-09-11] MEDS: ONDANSETRON ODT 4 MG TAB PO (11:40)
[2024-09-11 11:51] LABS: PCR FLU A Negative PCR FLU A (Negative); PCR FLU B Negative PCR FLU B (Negative); PCR RSV Negative PCR RSV (Negative); SARS PCR* POSITIVE SARS-CoV-2 (Negative)
== END 2024-09-11 13:07 | disposition home or self-care (01) ==
PROVIDERS: Emergency Provider Emergency Medicine
DX: U07.1 COVID-19 (principal); O20.0 Threatened abortion
CPT/HCPCS: 36415; 76817; 80048; 81001; 84702; 85025; 87086; 87631; 99284; A9270

== ENCOUNTER 2024-09-21 12:00 | Outpatient (CLI) | payer MEDICAID, SELFPAY ==
--- NOTE | 2024-09-21 12:15 | CRLHL7_ITS ---
For Patients: As a result of the Cures Act, medical imaging exams and procedure reports are released immediately into your electronic medical record. You may view this report before your referring provider. If you have questions, please contact your health care provider. INDICATION: f/u previous ultrasound early ob dating/spotting COMPARISON: 09/11/2024 TECHNIQUE: Real-time porras-scale imaging of the pelvis was performed. FINDINGS: Sonographic imaging demonstrates a single living intrauterine gestation. The embryo demonstrates a regular cardiac rate measuring 169 beats per minute. The embryo`s crown-rump length measurement of 1.7 cm corresponds to a gestational age of 8 weeks 1 day with a sonographic due date of 05/02/2025. There is a normal-appearing yolk sac. There are no gross abnormalities noted within the embryo at this early state of development. The gestational sac has a normal appearance. There is no evidence of a perigestational hemorrhage. The amount of fluid within the sac appears appropriate for gestational age. The cervix is closed. The myometrium appears normal. The ovaries are of normal size. Corpus luteal cyst left ovary. There are no suspicious fluid collections noted in the cul-de-sac. IMPRESSION: Normal first trimester OB ultrasound exam. Gestational age calculated at 8 weeks 1 day with a sonographic due date of 05/02/2025. Dictated by Robert Neal MD @ 09/21/2024 1:17:47 PM (Electronically Signed)
== END 2024-09-21 12:01 | disposition home or self-care (01) ==
PROVIDERS: Visit Provider Advanced Practice Midwife
DX: Z34.91 Encounter for supervision of normal pregnancy, unspecified, first trimester (principal); Z3A.08 8 weeks gestation of pregnancy
CPT/HCPCS: 76817; 80306; 82565; 82570; 83021; 84156; 84450; 84460; 86592; 86703; 86704; 86706; 86762; 86787; 86803; 86850; 86900; 86901; 87086; 87340; 87491; 87591

== ENCOUNTER 2024-09-21 13:44 | Outpatient (CLI) | payer MEDICAID, SELFPAY ==
[2024-09-21 18:09] LABS: Chlamydia DNA Amplified* NOT DETECTED (No Detected); GC DNA Amplified* NOT DETECTED (No Detected)
== END 2024-09-21 13:45 | disposition home or self-care (01) ==
PROVIDERS: PCP Advanced Practice Midwife; Visit Provider Advanced Practice Midwife
DX: Z34.91 Encounter for supervision of normal pregnancy, unspecified, first trimester (principal); Z87.59 Personal history of other complications of pregnancy, childbirth and the puerperium; Z3A.08 8 weeks gestation of pregnancy
CPT/HCPCS: 80306; 82565; 82570; 83020; 83021; 84156; 84450; 84460; 85660; 86592; 86703; 86704; 86706; 86762; 86787; 86803; 86850; 86900; 86901; 87086; 87340; 87491; 87591

== ENCOUNTER 2024-10-31 11:19 | Outpatient (CLI) | payer BC, SELFPAY | END 2024-10-31 11:20 | disposition home or self-care (01) | LOC: AMB 11-02 09:15 | PROVIDERS: Visit Provider Emergency Medicine Emergency Medical Services | DX: O20.0 Threatened abortion (principal) | CPT/HCPCS: A0425; A0429 ==

== ENCOUNTER 2024-10-31 11:39 | Emergency (ER) | payer BC, SELFPAY ==
[2024-10-31 11:57] VITALS: BP 141/74; PULSE 81; RESP 18; TEMP 36.4; O2SAT 97; BMI 45.8
--- NOTE | 2024-10-31 12:07 | CRLHL7_ITS ---
For Patients: As a result of the Cures Act, medical imaging exams and procedure reports are released immediately into your electronic medical record. You may view this report before your referring provider. If you have questions, please contact your health care provider. INDICATION: Cramping. TECHNIQUE: Ultrasound OB pelvis transabdominal. COMPARISON: 09/21/2024. FINDINGS: Single living intrauterine with crown-rump length of 8.1 cm corresponding to 14 weeks 1 day. Estimated date of delivery is 04/30/2025. Normal-appearing gestational sac. heart rate is 153 beats per minute. Closed cervix measures 3.6 cm. Uterus as imaged is otherwise unremarkable. Left ovary is 3.2 x 1.6 x 2.1 cm and is within normal limits. Nonvisualization of the right ovary. Right adnexal region as imaged is unremarkable. No free fluid evident. IMPRESSION: 1. Single living intrauterine with estimated age of 14 weeks 1 day. 2. Nonvisualization of the right ovary. 3. Otherwise, unremarkable pelvic ultrasound. Dictated by Matthew Henderson MD @ 10/31/2024 3:18:25 PM Dictated by: Matthew Henderson MD @ 10/31/2024 15:19:19 (Electronically Signed)
--- OUTSIDE RECORDS SUMMARY | 2024-10-31 12:18 | XMS_ITS | Clinical Summary ---
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 Blood BLOOD SPECIMEN / Unknown Venipuncture / Unknown 06/13/2022 3:00 PM CDT 06/13/2022 3:03 PM CDT us Cely Vallejo MD SEND OUTS [facility] [address] [place] [address], * ANTI HIV 1/2 (06/13/2022 3:00 PM CDT) Pathologist [facility] HIV-1/HIV-2 ANTIBODY Non-Reacti ve Non-Reacti ve 06/14/2022 8:58 PM CDT [facility] Comment:HIV-1 p24 and HIV-1/ HIV-2 Ab not detected. Blood BLOOD SPECIMEN / Unknown Venipuncture / Unknown 06/13/2022 3:00 PM CDT 06/13/2022 3:03 PM CDT Cely Vallejo MD SEND OUTS Final Resu lt Performing Organization Address City/[facility]/ZIP Co de Phone Number [facility] [address] [place] [address], [place] * GC CHLAMYDIA TRACH PROBE (03/11/2022 2:53 PM CDT) CHLAMYDIA PROBE Negative 7:14 PM CDT [facility] N GONORRHOEAE PROBE Negative 03/12/2022 7:14 PM CDT [facility] Other ENDOCERVICAL CYTOLOGIC MATERIAL / Unknown Non-Blood / Unknown 03/11/2022 2:53 PM CDT 03/11/2022 6:15 PM CDT Jerrell Mathur DO MICROBIOLOGY Final Res ult Performing Organization Address [facility]/ZIP Co de Phone Number [facility] [address] [place] [address], [place] * HPV HIGH RISK (03/11/2022 2:53 PM CDT) TYPE 16 Negative Negative 03/14/2022 2:05 PM CDT [facility] TYPE 18 Negative Negative 03/14/2022 2:05 PM CDT [facility] OTHER HIGH RISK TYPES Negative Negative 03/14/2022 2:05 PM CDT [facility] Other (Cervical) Non-Blood / Unknown 03/11/2022 2:53 PM CDT 03/12/2022 5:17 PM CDT Narrative [facility] - 03/14/2022 2:05 PM CDT HPV types 16, 18, 31, 33, 35, 39, 45, 51, 52, 56, 58, 59, 66 and 68 DNA were undetectable or below the pre-set threshold. Methodology: Aj Maite 4800 HPV Test us Jerrell Mathur DO MICROBIOLOGY Final Res ult [facility] [address] [place] [address], from Last 3 Months or Most Recently Relevant to Health Maintenance Insurance MERGED WITH [facility] Care Teams Barn Manager Relationship Specialty Start Date End Date Pcp, No . PCP - General 03/11/22
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
== END 2024-10-31 13:15 | disposition home or self-care (01) ==
PROVIDERS: Emergency Provider Emergency Medicine Emergency Medical Services
DX: R10.9 Unspecified abdominal pain (principal); Z33.1 Pregnant state, incidental
CPT/HCPCS: 76815; 99283; 99284

== ENCOUNTER 2024-12-16 13:49 | Outpatient (CLI) | payer BC, SELFPAY ==
--- NOTE | 2024-12-16 14:00 | CRLHL7_ITS ---
For Patients: As a result of the Century Cures Act, medical imaging exams and procedure reports are released immediately into your electronic medical record. You may view this report before your referring provider. If you have questions, please contact your health care provider. INDICATION: Second trimester anatomical survey. COMPARISON: None. TECHNIQUE: Grayscale imaging of the uterus, adnexae and fetus via a transabdominal approach. FINDINGS: number: 1 position: Breech. Placenta: Posterior/fundal. Amniotic fluid: Normal. Deepest vertical pocket of amniotic fluid measures 6.2 cm. Uterus: The cervical length is 4.4cm. No significant uterine findings. Right ovary: Not seen. Left ovary: Not seen. heart rate: 142bpm. BPD: 4.9cm; 20 weeks and 5 days. Percentile: 64% HC: 17.7cm; 20 weeks and 1 day. Percentile: 29% AC: 15.6cm; 20 weeks and 5 days. Percentile: 56% FL: 3.3cm; 20 weeks and 1 day. Percentile: 34% US EGA: 20 weeks and 2 days. US MICHELLE: 05/03/2025 Established MICHELLE: 05/02/2025 EFW: 358gm, +/-54gm, corresponding to the 49th percentile for the established MICHELLE. Documented Anatomy: Head and Neck Midline falx: Seen. Choroid plexus: Seen. Lateral ventricles: Seen. Cavum septum pellucidum: Limited. Cerebellum: Seen. Cisterna Magna: Seen. Nuchal fold: Seen. Face Upper lip: Limited. Chest Cardiac axis: Seen. 4 Chamber view: Seen. LVOT: Seen. RVOT: Seen. Abdomen Stomach: Seen. Kidneys: Seen. Bowel: Seen. Urinary bladder: Seen. Abdominal cord insertion: Seen. 3 vessel cord: Seen. Limbs Right arm and hand: Seen. Left arm and hand: Seen. Right leg and foot: Seen. Left leg and foot: Seen. Spine in Sagittal and Transverse Planes Cervical: Limited. Thoracic: Limited. Lumbar: Limited. Sacral: Limited. Motion: Present. anatomy documented as per the 2018 [id number] Practice Parameter for the performance of standard diagnostic ultrasound examinations. IMPRESSION: 1. Limited evaluation of the cavum septum pellucidum, upper lip and spine due to a combination of maternal body habitus and position. Follow-up to better document these structures is recommended. 2. Otherwise normal survey. Dictated by Mark Hearn MD @ 12/19/2024 7:42:05 AM (Electronically Signed)
== END 2024-12-16 13:50 | disposition home or self-care (01) ==
LOC: US 13:51
PROVIDERS: Visit Provider Obstetrics & Gynecology
DX: Z34.92 Encounter for supervision of normal pregnancy, unspecified, second trimester (principal); O35.AXX0 Maternal care for other (suspected) fetal abnormality and damage, fetal facial anomalies, not applicable or unspecified; O35.FXX0 Maternal care for other (suspected) fetal abnormality and damage, fetal musculoskeletal anomalies of trunk, not applicable or unspecified; Z3A.20 20 weeks gestation of pregnancy
CPT/HCPCS: 76805

== ENCOUNTER 2025-01-28 18:12 | Emergency (ER) | payer BC, SELFPAY ==
--- OUTSIDE RECORDS SUMMARY | 2025-01-09 13:05 | XMS_ITS | Encounter Summary ---
Author Organization [facility] Address [address] [place] [address] Care Team Providers Care Manager Farm Name Role Phone No Ref-Primary, Physician Primary Care Provider Reason for Referral * Diagnostic Imaging Ultrasound (Routine) - Pending Review Specialty Diagnoses / Procedures Referred By Contac t Referred To Contact Radiology. Diagnoses related condition, antepartum Procedures [facility] US Comprehensive Single Elizabeth Butt MD [facility] [address] [place] [address] Phone: tel: fax: Referral ID Status Reason Start Date Expiration Date V isits Requested Visits Authorized [id number] Pending Review 12/27/2024 12/27/2025 1 1 Reason for Visit * Diagnostic Imaging Ultrasound (Routine) - Pending Review Specialty Diagnoses / Procedures Referred By Contac t Referred To Contact Radiology. Diagnoses related condition, antepartum Procedures [facility] US Comprehensive Single Elizabeth Butt MD [facility] [address] [place] [address] Phone: tel: fax: Referral ID Status Reason Start Date Expiration Date V isits Requested Visits Authorized [id number] Pending Review 12/27/2024 12/27/2025 1 1 Encounter Details Date Type Department Care Team (Latest Contact Info) Description 01/09/2025 1:05 PM CDT - 01/09/2025 11:59 PM CDT Hospital Encounter [facility] [place] [address] [place] [address] Urmila Zuniga MD [address] [place], [place] [phone] related condition, antepartum Discharge Disposition: Home or Self Care Social History Tobacco Use Types Packs/Day Years Used Date Smoking Tobacco: Never Assessed Estimated Date of Delivery Comme nts Yes 05/02/2025 Based on Ultraso und Sex and Gender Information Value Date Recorded Sex Assigned at Not on file 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 Gender Identity Not on file Sexual Orientation Not on file documented as of this encounter Plan of Treatment Upcoming Encounters Date Type Department Care Team (Late st Contact Info) Description 02/01/2025 2:15 PM CDT Appointment [facility] [place] [address] [facility] [address] [place] [phone] Urmila Zuniga MD [address] [place], [place] [phone] 02/01/2025 2:45 PM CDT Office Visit [facility] [place] [address] [facility] [address] [place] [phone] Urmila Zuniga MD [address] [place], [place] [phone] documented as of this encounter Procedures Procedure Name Priority Date/Time Associated Diagnosis Comments [facility] US COMPREHENSIVE SINGLE Routine 01/09/2025 2:09 PM CDT related condition, antepartum documented in this encounter Results * [facility] US Comprehensive Single (01/09/2025 2:09 PM CDT) Anatomical Region Laterality Modality Ultrasound 01/09/2025 1:26 PM CDT Impressions 01/09/2025 3:52 PM CDT IMPRESSION ----- 1. Galvez at 24w 1d gestational age. 2. No anomalies commonly detected by ultrasound were identified in the detailed anatomic survey within the limits of ultrasound, however some views were suboptimal, as described above. 3. Growth parameters and estimated weight were consistent with gestational age predicted by assigned MICHELLE. 4. The amniotic fluid volume appeared normal. 5. On transabdominal imaging the cervix appeared long and closed. Narrative 01/09/2025 3:52 PM CDT Comprehensive ----- Pat. Name: CAROLYNN GARCIA Study Date: 01/09/2025 1:26pm Pat. NO: [id number] Referring MD: ELIZABETH BUTT Site: Media/Instructional Designer: Mckenzie Mancini RDMS : 2000 Age: 24 ----- INDICATION ----- BMI-46. Suboptimal anatomy on previous u/s. METHOD ----- Transabdominal ultrasound examination. View: Suboptimal view: limited by maternal body habitus ----- Galvez . Number of fetuses: 1 DATING ----- Date Details Gest. age MICHELLE Previous U/S 09/11/2024 GA, GA 6 w + 5 d 23 w + 6 d 05/02/2025 U/S 01/09/2025 based upon AC, BPD, Femur, HC 24 w + 1 d 04/30/2025 Assigned dating based on ultrasound (AC, BPD, Femur, HC), selected on 01/09/2025 24 w + 1 d 04/30/2025 GENERAL EVALUATION ----- Cardiac activity present. FHR 148 bpm. movements: present. Presentation: cephalic Placenta: No Previa, > 2 cm from internal os, Posterior Umbilical cord: 3 vessel cord Amniotic fluid: Amount of AF: normal. MVP 7.8 cm BIOMETRY ----- BPD 60.1 mm 24w 4d Hadlock OFD 76.0 mm 23w 2d Nicolaides HC 216.7 mm 23w 5d Hadlock Cerebellum tr 26.7 mm 24w 2d Nicolaides AC 199.6 mm 24w 4d 56% Hadlock Femur 42.6 mm 23w 6d Hadlock Humerus 37.6 mm 23w 1d [facility] Weight Calculation: EFW 677 g 46% Hadlock EFW (lb,oz) 1 lb 8 oz EFW by Hadlock ([id number]) Head / Face / Neck Biometry: Band Manager 5.5 mm CM 5.5 mm Nasal bone 7.7 mm ANATOMY ----- The following structures appear normal: Head / Neck Cranium. Head size. Head shape. Lateral ventricles. Choroid plexus. Midline falx. Cavum septi pellucidi. Cerebellum. Cisterna magna. Parenchyma. Thalami. Vermis. Neck. Face Lips. Profile. Nose. Maxilla. Mandible. Orbits. Lens. Heart / Thorax 4-chamber view. 1-mpsnyo-jbovpcr view. Situs. Aortic arch view. Bicaval view. Ductal arch view. Superior vena cava. Inferior vena cava. Cardiac position. Cardiac size. Cardiac rhythm. Right lung. Left lung. Diaphragm. Abdomen Abdom. wall. Cord insertion. Stomach. Kidneys. Bladder. Liver. Bowel. Genitals. Spine Cervical spine. Thoracic spine. Lumbar spine. Sacral spine. Extremities / Skeleton Arms. Right arm. Right hand. Left arm. Left hand. Legs. Right leg. Right foot. Left leg. Left foot. The following structures could not be adequately visualized: Heart / Thorax RVOT view. LVOT view. 3-vessel view. sex: female. MATERNAL STRUCTURES ----- Cervix Visualized Appearance: Appears Closed Cervical length 45.4 mm Right Ovary Visualized Left Ovary Not visualized RECOMMENDATION ----- Thank-you for referring your patient for ultrasound assessment. I discussed the findings on today's ultrasound with the patient. I reviewed the limitations of ultrasound both in detecting aneuploidy and structural abnormalities. Ultrasound, when views completed, can routinely detect 80-90% of structural abnormalities. She has not had genetic screening this . Follow-up is scheduled here in three weeks to reassess anatomy that was suboptimally seen today. We will plan to reassess growth at that time. Following this, recommend repeat growth assessment at 34 weeks due to BMI in addition to weekly testing starting at 34 weeks. I presume these subsequent ultrasounds will be scheduled with primary service operator. Return to primary provider for continued care. If you have questions regarding today's evaluation or if we can be of further service, please contact the [facility]. anomalies may be present but not detected I spent a total of 15 minutes (excluding the ultrasound interpretation) on the date of this encounter including preparing to see the patient (reviewing medical records/tests), in direct czqy-za-kdek contact with the patient counseling and discussing the plan of care, documenting the visit in the electronic medical record, and communicating with other health grounds caretaker and/or care coordination. Procedure Note Urmila Zuniga MD - 01/09/2025 Comprehensive ----- Pat. Name: CAROLYNN GARCIA Study Date: 01/09/2025 1:26pm Pat. NO: [id number] Referring MD: ELIZABETH BUTT Site: Media/Instructional Designer: Mckenzie Mancini RDMS : 2000 Age: 24 ----- INDICATION ----- BMI-46. Suboptimal anatomy on previous u/s. METHOD ----- Transabdominal ultrasound examination. View: Suboptimal view: limited bymaternal body habitus ----- Galvez . Number of fetuses: 1 DATING ----- DateDetailsGest. age MICHELLE Previous U/S 09/11/2024 GA, GA6 w + 5 d23 w + 6 d 05/02/2025 U/S 5based upon AC, BPD, Femur, HC24 w + 1 d 04/30/2025 Assigned dating based on ultrasound (AC, BPD, Femur, HC),selected on 01/09/2025 24 w + 1 04/30/2025 GENERAL EVALUATION ----- Cardiac activity present. FHR 148 bpm. movements: present.Presentation: cephalic Placenta: No Previa, > 2 cm from internal os, Posterior Umbilical cord: 3 vessel cord Amniotic fluid: Amount of AF: normal. MVP 7.8 cm BIOMETRY ----- BPD 60.1mm 24w 4dHadlock OFD 76.0mm 23w 2dNicolaides HC 216.7mm 23w 5dHadlock Cerebellum tr 26.7mm 24w 2dNicolaides AC 199.6mm 24w 4d 56%Hadlock Femur 42.6mm 23w 6dHadlock Humerus 37.6mm 23w 1d[facility] Weight Calculation: EFW 677g 46%Hadlock EFW (lb,oz) 1 lb 8oz EFW by Hadlock([id number]) Head / Face / Neck Biometry: Band Manager 5.5mm CM 5.5mm Nasal bone 7.7mm ANATOMY ----- The following structures appear normal: Head / Neck Cranium. Head size. Head shape.Lateral ventricles. Choroid plexus. Midline falx. Cavum septi pellucidi.Cerebellum. Cisterna magna. Parenchyma. Thalami. Vermis. Neck. Face Lips. Profile. Nose. Maxilla.Mandible. Orbits. Lens. Heart / Thorax 4-chamber view. 5-nvwaiw-hjvcsul view.Situs. Aortic arch view. Bicaval view. Ductal arch view. Superior venacava. Inferior vena cava. Cardiac position. Cardiac size. Cardiacrhythm. Right lung. Left lung.Diaphragm. Abdomen Abdom. wall. Cord insertion. Stomach.Kidneys. Bladder. Liver. Bowel. Genitals. Spine Cervical spine. Thoracic spine.Lumbar spine. Sacral spine. Extremities / Skeleton Arms. Right arm. Right hand. Left arm.Left hand. Legs. Right leg. Right foot. Left leg. Left foot. The following structures could not be adequately visualized: Heart / Thorax RVOT view. LVOT view. 3-vessel view. sex: female. MATERNAL STRUCTURES ----- Cervix Visualized Appearance: Appears Closed Cervical length 45.4 mm Right Ovary Visualized Left Ovary Not visualized RECOMMENDATION ----- Thank-you for referring your patient for ultrasound assessment. I discussed the findings on today's ultrasound with the patient. Ireviewed the limitations of ultrasound both in detecting aneuploidy andstructural abnormalities. Ultrasound, when views completed, can routinely detect 80-90% of structuralabnormalities. She has not had genetic screening this . Follow-up is scheduled here in three weeks to reassess anatomy that wassuboptimally seen today. We will plan to reassess growth at thattime. Following this, recommend repeat growth assessment at 34 weeks due to BMI in addition toweekly testing starting at 34 weeks. I presume these subsequentultrasounds will be scheduled with primary service operator. Return to primary provider for continued care. If you have questions regarding today's evaluation or if we can be offurther service, please contact the [facility]. anomalies may be present but not detected I spent a total of 15 minutes (excluding the ultrasound interpretation) onthe date of this encounter including preparing to see the patient(reviewing medical records/tests), in direct jlxc-kz-psua contact with the patient counseling and discussingthe plan of care, documenting the visit in the electronic medical record,and communicating with other health grounds caretaker and/or care coordination. IMPRESSION ----- 1. Galvez at 24w 1d gestational age. 2. No anomalies commonly detected by ultrasound were identified inthe detailed anatomic survey within the limits of prenatalultrasound, however some views were suboptimal, as described above. 3. Growth parameters and estimated weight were consistent withgestational age predicted by assigned MICHELLE. 4. The amniotic fluid volume appeared normal. 5. On transabdominal imaging the cervix appeared long and closed. us Elizabeth Butt MD [facility] US ORDERABLES Edited Result - Final documented in this encounter Visit Diagnoses Diagnosis related condition, antepartum documented in this encounter Care Teams Manager Farm Relationship Specialty Start Date End Date No Ref-Primary, Physician PCP - General 12/27/24 documented as of this encounter
--- OUTSIDE RECORDS SUMMARY | 2025-01-09 14:00 | XMS_ITS | Encounter Summary ---
Author Organization [facility] Address [address] [facility] [place] [address] Care Team Providers Care Behavioral Science Chair Name Role Phone No Ref-Primary, Physician Primary Care Provider Reason for Referral * Diagnostic Imaging Ultrasound (Routine) - Pending Review Specialty Diagnoses / Procedures Referred By Contac t Referred To Contact Radiology. Diagnoses Maternal obesity syndrome in second trimester Encounter for follow-up ultrasound of anatomy Procedures [facility] US Comprehensive Single F/U Urmila Zuniga MD [address] [place] [address] Phone: tel: fax: Referral ID Status Reason Start Date Expiration Date V isits Requested Visits Authorized [id number] Pending Review 01/09/2025 01/09/2026 1 1 Reason for Visit * Reason Comments Ultrasound L2- Subopt outside U S, BMI>40 Encounter Details Date Type Department Care Team (Late st Contact Info) Description 01/09/2025 2:00 PM CDT Office Visit [facility] [place] [address] [facility] [address] [place] [address] Urmila Zuniga MD [address] [place] [address] Maternal obesity syndrome in second trimester (Primary Dx); Encounter for follow-up ultrasound of anatomy; BMI 45.0-49.9, adult (H) Social History Tobacco Use Types Packs/Day Years Used Date Smoking Tobacco: Never Assessed Estimated Date of Delivery Comme nts Yes 05/02/2025 Based on Ultraso und Sex and Gender Information Value Date Recorded Sex Assigned at Not on file 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 Urmila Zuniga documented in this encounter Nursing Notes * Ana Skelton RN - 01/09/2025 2:00 PM CDT Patient here for L2 Patient denies pain, contractions, leaking of fluid, or bleeding. SBAR given to [facility], see their note in Epic. documented in this encounter Plan of Treatment Upcoming Encounters Date Type Department Care Team (Late st Contact Info) Description 02/01/2025 2:15 PM CDT Appointment [facility] [place] [address] [facility] [address] [place] [phone] Urmila Zuniga MD [address] [place], [place] [phone] 02/01/2025 2:45 PM CDT Office Visit [facility] [place] [address] [facility] [address] [place] [phone] Urmila Zuniga MD [address] [place], [place] [phone] Scheduled Orders Name Type Priority Associated Diagnoses Orde r Schedule [facility] US Comprehensive Single F/U Imaging Routine Maternal obesity syndrome in second trimester Encounter for follow-up ultrasound of anatomy Expected: 01/30/2025 (Approximate), Expires: 01/09/2026 documented as of this encounter Visit Diagnoses Diagnosis Maternal obesity syndrome in second trimester- Primary Encounter for follow-up ultrasound of anatomy BMI 45.0-49.9, adult (H) Body Mass Index 45.0-49.9, adult documented in this encounter Care Teams Behavioral Science Chair Relationship Specialty Start Date End Date No Ref-Primary, Physician PCP - General 12/27/24 documented as of this encounter
--- OUTSIDE RECORDS SUMMARY | 2025-01-28 18:14 | XMS_ITS | Encounter Summary ---
Author Organization [facility] Address [address] [place] [address] Care Team Providers Care Pattern Gater Name Role Phone No Ref-Primary, Physician Primary Care Provider Reason for Referral * Diagnostic Imaging Ultrasound (Routine) - Pending Review Specialty Diagnoses / Procedures Referred By Contac t Referred To Contact Radiology. Diagnoses related condition, antepartum Procedures [facility] US Comprehensive Single Elizabeth Butt MD [facility] [address] [place] [address] Phone: tel: fax: Referral ID Status Reason Start Date Expiration Date V isits Requested Visits Authorized [id number] Pending Review 12/27/2024 12/27/2025 1 1 * Consultation (Routine: Next available opening) - Pending Review Specialty Diagnoses / Procedures Referred By Contac t Referred To Contact Diagnoses related condition, antepartum Elizabeth Butt MD [facility] [address] [place] [address] Phone: tel: fax: [facility] [place] [address] [facility] [address] [place] [address] Phone: tel: fax: Referral ID Status Reason Start Date Expiration Date V isits Requested Visits Authorized [id number] Pending Review 12/27/2024 12/27/2025 1 1 Question Answer Preferred Location: [facility] Working Due Date: 05/02/2025 US Ordering Instructions: If US ONLY is requested, select appropriate US Order and DO NOT order MFM Consult. Reason for Referral: Ultrasound Ultrasound - Includes Interpretation/Recommendations (*indicates inclusion of genetic counseling): Comprehensive US (>= 18w0d GA) - obesity, had level 2, nose, lips, spine not well visualized Indication (* indicates inclusion of genetic counseling): Other (enter details in Comments) - obesity, had level 2, nose, lips, spine not well visualized Fax number results need to be sent to: [facility] [place] [phone] Comments obesity, had level 2, nose, lips, spine not well visualized Encounter Details Date Type Department Care Team (Latest Contact Info) Description 12/27/[address] 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 [place] [address] [facility] [address] [place] [phone] Urmila Zuniga MD [address] [place] [phone] 02/01/2025 2:45 PM CDT Office Visit [facility] [place] [address] [facility] [address] [place] [address] Urmila Zuniga MD [address] [place] [address] Scheduled Referrals Name Type Priority Associated Diagnoses Orde r Schedule [facility] Ctr Referral - Referral Routine: Next available opening related condition, antepartum Expected: 12/27/2024 (Approximate), Expires: 06/25/2025 documented as of this encounter Results * [facility] US Comprehensive Single (01/09/2025 2:09 PM CDT) [...] GARCIA Study Date: 01/09/2025 1:26pm Pat. NO: [id number] Referring MD: ELIZABETH BUTT Site: Service Technician: Mckenzie Mancini [facility] : 2000 Age: 24 ----- INDICATION ----- [...] 6d Hadlock Humerus 37.6 mm 23w 1d [facility] Weight Calculation: EFW 677 g 46% Hadlock EFW (lb,oz) 1 lb 8 oz EFW by Hadlock ([id number]) Head / Face / Neck Biometry: Loan Teller 5.5 mm CM 5.5 mm Nasal bone 7.7 mm ANATOMY ----- The following structures appear normal: Head / Neck Cranium. Head size. Head shape. Lateral ventricles. Choroid plexus. Midline falx. Cavum septi pellucidi. Cerebellum. Cisterna magna. Parenchyma. Thalami. Vermis. Neck. Face Lips. Profile. Nose. Maxilla. Mandible. Orbits. Lens. Heart / Thorax 4-chamber view. 8-hinxno-iexkkdi view. Situs. Aortic arch view. Bicaval view. [...] subsequent ultrasounds will be scheduled with primary diversional therapist. Return to primary provider for continued care. If you have questions regarding today's evaluation or if we can be of further service, please contact the [facility]. anomalies may be present but not detected I spent a total of 15 minutes (excluding the ultrasound interpretation) on the date of this encounter including preparing to see the patient (reviewing medical records/tests), in direct qeos-gu-clff contact with the patient counseling and discussing the plan of care, documenting the visit in the electronic medical record, and communicating with other health hospice care consultant and/or care coordination. Procedure Note Urmila Zuniga MD - 01/09/2025 Comprehensive ----- Pat. Name: CAROLYNN GARCIA Study Date: 01/09/2025 1:26pm Pat. NO: [id number] Referring MD: ELIZABETH BUTT Site: Service Technician: Mckenzie Live [facility] : 2000 Age: 24 ----- INDICATION ----- [...] EFW (lb,oz) 1 lb 8oz EFW by Hadlock([id number]) Head / Face / Neck Biometry: Loan Teller 5.5mm CM 5.5mm Nasal bone 7.7mm ANATOMY ----- The following structures appear normal: Head / Neck Cranium. Head size. Head shape.Lateral ventricles. Choroid plexus. Midline falx. Cavum septi pellucidi.Cerebellum. Cisterna magna. Parenchyma. Thalami. Vermis. Neck. Face Lips. Profile. Nose. Maxilla.Mandible. Orbits. Lens. Heart / Thorax 4-chamber view. 5-xckaim-ulkhhri view.Situs. Aortic arch view. Bicaval view. Ductal [...] these subsequentultrasounds will be scheduled with primary diversional therapist. Return to primary provider for continued care. If you have questions regarding today's evaluation or if we can be offurther service, please contact the [facility]. anomalies may be present but not detected I spent a total of 15 minutes (excluding the ultrasound interpretation) onthe date of this encounter including preparing to see the patient(reviewing medical records/tests), in direct uhis-la-raii contact with the patient counseling and discussingthe plan of care, documenting the visit in the electronic medical record,and communicating with other health hospice care consultant and/or care coordination. IMPRESSION ----- 1. Galvez [...] long and closed. us Elizabeth Butt MD [facility] US ORDERABLES Edited Result - Final documented in this encounter Visit Diagnoses Diagnosis related condition, antepartum- Primary related condition, antepartum documented in this encounter Care Teams Pattern Gater Relationship Specialty Start Date End Date No Ref-Primary, Physician PCP - General 12/27/24 documented as of this encounter
--- OUTSIDE RECORDS SUMMARY | 2025-01-28 18:14 | XMS_ITS | Encounter Summary ---
Author Organization [place] Address [address] [place] [address] Care Team Providers Care Back Facer Name Role Phone No Ref-Primary, Physician Primary Care Provider Reason for Visit * Reason Comments Ultrasound L2-obesity, suboptim al anatomy Encounter Details Date Type Department Care Team (Late st Contact Info) Description 12/29/2024 PRE VISIT [facility] [place] [address] [facility] [address] [place] [address] Fernanda Thorpe RN Ultrasound (L2-obesity, suboptimal anatomy) Social History Tobacco Use Types Packs/Day Years Used Date Smoking Tobacco: Never Assessed Estimated Date of Delivery Comme nts Yes 05/02/2025 Based on Ultraso und Sex and Gender Information Value Date Recorded Sex Assigned at Not on file 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 Gender Identity Not on file Sexual Orientation Not on file documented as of this encounter Plan of Treatment Upcoming Encounters Date Type Department Care Team (Late Contact Info) Description 02/01/2025 2:15 PM CDT Appointment [facility] [place] [address] [employer] [facility] [address] [place] [phone] Urmila Zuniga MD [address] [facility] [address] [place], [place] [address] 02/01/2025 2:45 PM CDT Office Visit [facility] [address] [place] [phone] Urmila Zuniga MD [address] [facility] [address] [place] [address] documented as of this encounter Visit Diagnoses Not on filedocumented in this encounter Care Teams Back Facer Relationship Specialty Start Date End Date No Ref-Primary, Physician PCP - General 12/27/24 documented as of this encounter
--- OUTSIDE RECORDS SUMMARY | 2025-01-28 18:14 | XMS_ITS | Clinical Summary ---
Author Organization [facility] Address [address] [place] [address] Care Team Providers Care Core Baker Name Role Phone Pcp, No Primary Care Provider Unavailabl e Allergies Active Allergy Reactions Criticality Noted Date Comments Copper Rash Low 03/11/2022 Medications vitamin-iron fumarate-folic acid (PNV-Select) 27-1 mg tabIndications:Pr imigravida in first trimester (HC) Take 1 Tablet by mouth once daily. 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 Gender Identity Not on file Sexual Orientation [...] - 3-dose series) 12/10/2014 Tetanus booster 2019 Depression screening for age 12+ 06/13/2023 06/13/2022, 06/13/2022, 06/13/2022 BMI (ht and wt on same day) for age 18+ 08/11/2023 08/11/2022, 03/11/2022 COVID-19 vaccine series (2023-25 season) 2024 Influenza Vaccine (Season Ended) 2025 06/13/2022 Pap test for age 21-65 03/11/2027 03/11/2022, 2021 Hepatitis B series for 19+ Completed 10/22, 06/12/2000, 02/18/2000 Pneumococcal series for age 6-49 Aged Out 03/24/2001, 06/12/2000, 04/22/2000, Additional history exists No longer eligible based on patient's age to complete this topic HIV for age 15-65 Completed 06/13/2022, 03/11/2022 Hepatitis C screening for age 18-79 Completed 06/13/2022, 03/11/2022 Procedures Procedure Name Priority Date/Time Associated Diagnosis Comments ANTI HIV 1/2 Routine 06/13/2022 3:00 PM CDT Primigravida in first trimester (HC) ANTI HCV Routine 06/13/2022 3:00 PM CDT Primigravida in first trimester (HC) HPV HIGH RISK Routine 03/11/2022 2:53 PM CDT Cervical cancer screening from Last 3 Months or Most Recently Relevant to Health Maintenance Results * ANTI HCV (06/13/2022 3:00 PM CDT) HEPATITIS C ANTIBODY Non-React patricia Non-React patricia 06/14/2022 9:06 PM CDT [facility] Comment:Antibodies to HCV no t detected; does not exclude the possibility of exposure to HCV. Blood BLOOD SPECIMEN / Unknown Venipuncture / Unknown 06/13/2022 3:00 PM CDT 06/13/2022 3:03 PM CDT us Cely Vallejo MD SEND OUTS Final Resu lt [facility] [address] [place] [address], [place] * ANTI HIV 1/2 (06/13/2022 3:00 PM CDT) HIV-1/HIV-2 ANTIBODY Non-Reacti ve Non-Reacti ve 06/14/2022 8:58 PM CDT [facility] Comment:HIV-1 p24 and HIV-1/ HIV-2 Ab not detected. Blood BLOOD SPECIMEN / Unknown Venipuncture / Unknown 06/13/2022 3:00 PM CDT 06/13/2022 3:03 PM CDT us Cely Vallejo MD SEND OUTS Final Resu lt [facility] [address] [place] [address], * HPV HIGH RISK (03/11/2022 2:53 PM CDT) TYPE 16 Negative Negative 03/14/2022 2:05 PM CDT [facility] TYPE 18 Negative Negative 03/14/2022 2:05 PM CDT [facility] OTHER HIGH RISK TYPES Negative Negative 03/14/2022 2:05 PM CDT [facility] Other (Cervical) Non-Blood / Unknown 03/11/2022 2:53 PM CDT 03/12/2022 5:17 PM CDT Narrative [facility] - 03/14/2022 2:05 PM CDT HPV types 16, 18, 31, 33, 35, 39, 45, 51, 52, 56, 58, 59, 66 and 68 DNA were undetectable or below the pre-set threshold. Methodology: Aj Maite 4800 HPV Test us Jerrell Mathur DO MICROBIOLOGY Final Res ult [facility] [address] [place] [address], from Last 3 Months or Most Recently Relevant to Health Maintenance Insurance [facility] Care Teams Core Baker Relationship Specialty Start Date End Date Pcp, No . PCP - General 03/11/22
--- OUTSIDE RECORDS SUMMARY | 2025-01-28 18:14 | XMS_ITS | Clinical Summary ---
Author Organization [place] Address [facility] 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 (Primary Dx); Encounter for follow-up ultrasound of anatomy; BMI 45.0-49.9, adult (H) 01/09/2025 1:05 PM CDT - 01/09/2025 11:59 PM CDT Hospital Encounter [facility] [place] [address] [place] [phone] Urmila uZniga MD related condition, antepartum Discharge Disposition: Home or Self Care 01/09/2025 Travel 12/29/2024 PRE VISIT [facility] [address] [place] [phone] Fernanda Thorpe RN Ultrasound (L2-obesity, suboptimal anatomy) 12/27/2024 Medical Correspondence [facility] [address] [facility] [address] [place] [address] Scan, Non-Provider 12/27/2024 Transcribe Orders [facility] [address] [place] [address] Elizabeth Butt MD related condition, antepartum (Primary Dx) from Last 3 Months Social History Tobacco Use Types Packs/Day Years Used Date Smoking Tobacco: Never Assessed Estimated Date of Delivery Comme nts Yes 05/02/2025 Based on Ultraso und Sex and Gender Information Value Date Recorded Sex Assigned at Not on file 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 Gender Identity Not on file Sexual Orientation Not on file Plan of Treatment Upcoming Encounters Date Type Department Care Team (Late st Contact Info) Description 02/01/2025 2:15 PM CDT Appointment [facility] [address] [place] [address] Urmila Zuniga MD [address] [place], [place] [phone] 02/01/2025 2:45 PM CDT Office Visit [facility] [address] [place] [phone] Urmila Zuniga MD [address] [place] [address] Health Maintenance Due Date Last Done Comments ADVANCE CARE PLANNING 1999 ANNUAL REVIEW OF HM ORDERS 1999 HPV IMMUNIZATION (1 - 3-dose series) 12/10/2014 YEARLY PREVENTIVE VISIT 03/11/2023 03/11/2022 COVID-19 Vaccine ( season) 2024 PHQ-2 (once per calendar year) 2024 MATERNAL SCREENING DISCUSSION 10/04/2024 OBGCT (OB) 01/10/2025 TDAP () IMMUNIZATION 01/31/2025 PAP 03/11/2025 03/11/2022 DTAP/TDAP/TD IMMUNIZATION (6 - Td or Tdap) 11/24/2032 11/24/2022, 03/24/2001, 06/12/2000, Additional history exists ZOSTER IMMUNIZATION (1 of 2) 12/10/2049 HEPATITIS B IMMUNIZATION Completed 001, 06/12/2000, 02/18/2000 Pneumococcal Vaccine: Pediatrics (0 to 5 Years) and At-Risk Patients (6 to 49 Years) Aged Out 03/24/2001, 06/12/2000, 04/22/2000, Additional history exists No longer eligible based on patient's age to complete this topic HEPATITIS C SCREENING Completed 06/13/2022 HIV SCREENING Completed 06/13/2022 INFLUENZA VACCINE Completed 09/21/2024, 06/13/2022 MENINGITIS B IMMUNIZATION Aged Out No longer eligible based on patient's age to complete this topic MENINGITIS IMMUNIZATION Aged Out No l onger eligible based on patient's age to complete this topic RSV VACCINE (No Doses Required) Completed Procedures Procedure Name Priority Date/Time Associated Diagnosis Comments [facility] US COMPREHENSIVE SINGLE Routine 01/09/2025 2:09 PM CDT related condition, antepartum from Last 3 Months Results * [facility] US Comprehensive Single (01/09/2025 2:09 PM CDT) [...] GARCIA Study Date: 01/09/2025 1:26pm Pat. NO: [id number] Referring MD: ELIZABETH BUTT Site: [employer] Machine Operator: Mckenzie Mancini RDMS : 2000 Age: 24 [...] 1 lb 8 oz EFW by Hadlock ([id number]) Head / Face / Neck Biometry: [place]ra [place]ta Mason 5.5 mm CM 5.5 mm Nasal bone 7.7 mm ANATOMY ----- The following structures appear normal: Head / Neck Cranium. Head size. Head shape. Lateral ventricles. Choroid plexus. Midline falx. Cavum septi pellucidi. Cerebellum. Cisterna magna. Parenchyma. Thalami. Vermis. Neck. Face Lips. Profile. Nose. Maxilla. Mandible. Orbits. Lens. Heart / Thorax 4-chamber view. 0-pdonmi-hcxuvtf view. Situs. Aortic arch view. Bicaval view. [...] subsequent ultrasounds will be scheduled with primary inside sales coordinator. Return to primary provider for continued care. If you have questions regarding today's evaluation or if we can be of further service, please contact the [facility] Center. anomalies may be present but not detected I spent a total of 15 minutes (excluding the ultrasound interpretation) on the date of this encounter including preparing to see the patient (reviewing medical records/tests), in direct kdst-hn-oyeh contact with the patient counseling and discussing the plan of care, documenting the visit in the electronic medical record, and communicating with other health healthcare financial analyst and/or care coordination. Procedure Note Urmila Zuniga MD - 01/09/2025 Comprehensive ----- Pat. Name: CAROLYNN GARCIA Study Date: 01/09/2025 1:26pm Pat. NO: [id number] Referring MD: ELIZABETH BUTT Site: [employer] Operator: Mckenzie Mancini RDMS : 2000 Age: 24 [...] EFW (lb,oz) 1 lb 8oz EFW by Hadlock([id number]) Head / Face / Neck Biometry: [place] Mason 5.5mm CM 5.5mm Nasal bone 7.7mm ANATOMY ----- The following structures appear normal: Head / Neck Cranium. Head size. Head shape.Lateral ventricles. Choroid plexus. Midline falx. Cavum septi pellucidi.Cerebellum. Cisterna magna. Parenchyma. Thalami. Vermis. Neck. Face Lips. Profile. Nose. Maxilla.Mandible. Orbits. Lens. Heart / Thorax 4-chamber view. 0-cahecx-qxfjqnn view.Situs. Aortic arch view. Bicaval view. Ductal [...] these subsequentultrasounds will be scheduled with primary inside sales coordinator. Return to primary provider for continued care. If you have questions regarding today's evaluation or if we can be offurther service, please contact the [facility] Center. anomalies may be present but not detected I spent a total of 15 minutes (excluding the ultrasound interpretation) onthe date of this encounter including preparing to see the patient(reviewing medical records/tests), in direct slsb-mj-brnj contact with the patient counseling and discussingthe plan of care, documenting the visit in the electronic medical record,and communicating with other health healthcare financial analyst and/or care coordination. IMPRESSION ----- 1. Galvez [...] long and closed. us Elizabeth Butt MD [facility] US ORDERABLES Edited Result - Final from Last 3 Months Insurance [employer] [facility] Care Teams Digital Marketing Associate Relationship Specialty Start Date End Date No Ref-Primary, Physician PCP - General 12/27/24
--- OUTSIDE RECORDS SUMMARY | 2025-01-28 18:14 | XMS_ITS | Encounter Summary ---
Author Organization [place] Address [address] [facility] 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 Gender Identity Not on file Sexual Orientation Not on file documented as of this encounter Plan of Treatment Upcoming Encounters Date Type Department Care Team (Late st Contact Info) Description 02/01/2025 2:15 PM CDT Appointment [facility] [address] [facility] [address] [place] [phone] Urmila Zuniga MD [address] [place], [place] [address] 02/01/2025 2:45 PM CDT Office Visit [facility] [address] [facility] [address] [place] [address] Urmila Zuniga MD [address] [place], [place] [address] documented as of this encounter Visit Diagnoses Not on filedocumented in this encounter Care Teams Aix System Administrator Relationship Specialty Start Date End Date No Ref-Primary, Physician PCP - General 12/27/24 documented as of this encounter
--- OUTSIDE RECORDS SUMMARY | 2025-01-28 18:14 | XMS_ITS | Encounter Summary ---
Author Organization [place] Address [address] 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 Gender Identity Not on file Sexual Orientation Not on file documented as of this encounter Plan of Treatment Upcoming Encounters Date Type Department Care Team (Late st Contact Info) Description 02/01/2025 2:15 PM CDT Appointment [facility] [address] [facility] [address] [place] [address] Urmila Zuniga MD [address] [place], [place] [address] 02/01/2025 2:45 PM CDT Office Visit [facility] [address] [facility] [address] [place] [address] Urmila Zuniga MD [address] [place], [place] [address] documented as of this encounter Visit Diagnoses Not on filedocumented in this encounter Care Teams Bankruptcy Law Specialist Relationship Specialty Start Date End Date No Ref-Primary, Physician PCP - General 12/27/24 documented as of this encounter
[2025-01-28 18:16] VITALS: BP 121/64; PULSE 83; RESP 18; TEMP 35.7; O2SAT 96; BMI 46.0
--- NOTE | 2025-01-28 18:27 | ED.GENADULT ---
HPI - General Adult General Chief complaint: Extremity Pain/Injury, Lower Stated complaint: Right foot sharp pains Time Seen by Provider: 01/28/25 18:16 History of Present Illness HPI narrative: bottom of R foot painful with walking amd putting weight on it. started 2 days ago, denies injury. pt is 26 weeks , no ob concerns. 24-year-old woman presenting to the emergency department with concern of right foot pain. Describes popcorn ankles in other words crunchiness in her ankle joints that has been painless since grade school perhaps. Has sprained her right ankle but not recently. Over the last 2-3 days though started to have pain in her right arch. She describes sitting jo-cross applesauce in that tends to curve her foot inward. The pain in the arch is wrapping up to the dorsum of the midfoot along the medial aspect. Has a noted particular swelling. Hurts most to ambulate. Does not necessarily hurt more with 1st steps in the morning. However she does have to step generally on her heel to avoid discomfort. Has been struggling with some left hip pain thought to be related to . She does feel that she probably needs bigger tender shoes as is changing her feet. Maybe they roll in a little bit as well I believe she is saying. No treatment attempted yet. Is trying to stay active to maintain weight and have a healthier as well as maintain emotional health. Related Data Home Medications ?Medication ?Instructions ?Recorded ?Confirmed calcium carbonate (Tums) 200 mg PO BID 12/12/22 01/28/25 Previous Rx's ?Medication ?Instructions ?Recorded acetaminophen 500 mg tablet 1,000 mg (2 x 500 mg) PO Q6H PRN 01/11/23 Pain #30 tabs doxylamine succinate 25 mg tablet 12.5 mg (1/2 x 25 mg) PO QHS PRN 09/22/24 (Unisom (doxylamine)) nausea and vomiting #45 tabs vit 168-iron 27 mg-folic 1 cap PO .qd #90 caps 11/22/24 acid 800 mcg-omega3 235 mg capsule (One-A-Day -1) aspirin 81 mg tablet,delayed 81 mg PO QDAY #90 tabs 12/16/24 release docosahexaenoic acid 200 mg 200 mg PO DAILY #90 caps 04/11/25 capsule ( DHA) metoclopramide HCl 5 mg tablet 10 mg (2 x 5 mg) PO Q6H PRN nausea 01/17/25 (Reglan) and vomiting #90 tabs Allergies Allergy/AdvReac Type Severity Reaction Status Date / Time copper Allergy Intermediate rash Verified 01/17/25 13:56 adhesive tape Allergy Mild Rash Verified 01/17/25 13:56 Review of Systems Status of ROS: Reports: 6 or more systems reviewed and unremarkable except as noted in History and below PFSH PFSH Medical History Maternal varicella, non-immune ?O09.899 - Supervision of other high risk pregnancies, unspecified trimester (ICD-10) ?Z28.39 - Other underimmunization status (ICD-10) BMI 40.0-44.9, adult ?Z68.41 - Body mass index [BMI] 40.0-44.9, adult (ICD-10) COVID-19 affecting in first trimester ?O98.511 - Other viral diseases complicating , first trimester (ICD-10) ?U07.1 - COVID-19 (ICD-10) Gestational hypertension ?O13.9 - Gestational [-induced] hypertension without significant proteinuria, unspecified trimester (ICD-10) Marijuana use ?F12.90 - Cannabis use, unspecified, uncomplicated (ICD-10) Surgical History Status post primary low transverse section (01/10/23) ?Z98.891 - History of uterine scar from previous surgery (ICD-10) Elective ?Z33.2 - Encounter for elective termination of (ICD-10) Family History Mother Alcohol dependence Anxiety Sleep apnea Obesity Thyroid disease Narcolepsy Father Alcohol dependence Brother Sleep apnea Anxiety Maternal Grandmother Diabetes Thyroid disease Melanoma Obesity Other Depression Social History Narrative: SOCIAL Education: GED Work: Stay at home Partner: Working Lives with: Stable housing Pets: None Abuse: Denies Special Diet: Regular Ok with a blood transfusion: yes Culture or lutheran beliefs: No RISK FACTORS Exercise Times/wk: Likes to walk when able/weather dependent Depression/Anxiety: Struggle with anxiety and depression, discussed mood, desires referral to counseling. JONO: 0 PHQ 9: 0 Seat Belt Use: Routinely Smoking: None Alcohol/day: Denies while Caffeine: None Drug Use: Smoking marijuana, non since before Chicken Pox: Unknown MRSA: Denies What is your current living situation?: I presently have a place to live Problems where you live: no known problems In the past 12 months, utilities in danger of being shut off: no In past 12 months, lack of transportation kept you from medical appts, meetings, work, or getting things needed for daily living: yes In the past 12 mos, have been you worried that your food would run out before you had money to buy more?: never true In the past 12 mos, the food you bought just didn't last and you didn't have money to buy more?: never true Are you following a diet prescribed by a doctor: No Are you following a special diet: No Highest level of school completed/degree received: GED or equivalent Physical activity type: walking Physical activity type details: Not able to exercise currently DT weather and toddler. Smoking Status: Never smoker How often do you have a drink containing alcohol: never AUDIT-C Alcohol total score: 0 Non-prescribed substance use: former substance user and marijuana (any form) Non-prescribed substance use details: Stopped when learned of How often does anyone, including family, friends and others, physically hurt you: never How often does anyone, including family, friends and others, insult or talk down to you: never How often does anyone, including family, friends and others, threaten you with harm: never How often does anyone, including family, friends and others, scream or curse at you: never Feel stressed/tense/nervous/anxious/difficulty sleeping: rather much Health Related Social Needs: transportation insecurity (Z59.82) Exam Narrative: Exam Narrative: Pleasantly talkative. Sensitive to palpation over the mid dorsum of the foot and the arch. Not discretely at the plantar heel or over the joint capsules/forefoot. No erythema or swelling. Some scratched mosquito bites in the area. No pain to palpation about the ankle. Skin is well perfused. Intermittently she is rubbing the left upper thigh or hip area as if experiencing some discomfort. Noted plantar pain after the exam actually. When ambulating actually maintains arch quite good. This is a medium arch. She does not demonstrate significant eversion or inversion at the ankles. Slightly antalgic gait favoring the right. Const: Vital Signs, click to edit/add: Vital Signs - 24 hr 01/28/25 18:16 Temperature 96.3 F L Pulse Rate [Pulse Oximeter] 83 Respiratory Rate 18 Blood Pressure [Ri ght Upper Arm] 121/64 Pulse Oximetry 96 Oxygen Delivery Me thod Room Air Documenting provider has reviewed patient's vital signs: yes Course Vital Signs Vital signs: Initial Vital Signs Temperature 96.3 F L 01/28/25 18:16 Temperature Source Temporal Artery Scan 01/28/25 18:16 Pulse Rate 83 01/28/25 18:16 Respiratory Rate 18 01/28/25 18:16 Blood Pressure 121/64 01/28/25 18:16 Blood Pressure Mean 83 01/28/25 18:16 Pulse Oximetry 96 01/28/25 18:16 Oxygen Delivery Method Room Air 01/28/25 18:16 Vital Signs Temperature 96.3 F L 01/28/25 18:16 Pulse Rate 83 01/28/25 18:16 Respiratory Rate 18 01/28/25 18:16 Blood Pressure 121/64 01/28/25 18:16 Pulse Oximetry 96 01/28/25 18:16 Oxygen Delivery Method Room Air 01/28/25 18:16 Temperature 96.3 F L 01/28/25 18:16 Pulse Rate 83 01/28/25 18:16 Respiratory Rate 18 01/28/25 18:16 Blood Pressure 121/64 01/28/25 18:16 Pulse Oximetry 96 01/28/25 18:16 Oxygen Delivery Method Room Air 01/28/25 18:16 Medical Decision Making MDM Narrative Medical decision making narrative: Footwear does not look particularly supportive. I think I would at a minimum add some arch supports in. She looks to have moderate arches. She might be having this right-sided foot pain secondary to compensation due to left hip discomfort. Not clearly with description of associate with plantar fasciitis although this might be playing somewhat of a role. Does not appear to have a neuroma given area of discomfort. Not clearly with a capsulitis at least when palpated on exam. Would do x-ray though looking for heel spurs that in might be more likely to cause plantar fascial pain or perhaps some occult stress fracture. Foot x-ray independently reviewed by me looks to be unremarkable. Radiology over-read is pending Unclear source of foot pain at this point though I think stress brought on by combination of ligamentous laxity in , compensatory stress due to left hip pain and possibly capsular irritation. See patient discharge plan for further discussion I wonder if you might be over compensating for some left hip pain causing some of this right foot pain. I would recommend getting more supportive footwear as discussed. Perhaps returning to those [facility] maybe with a softer foot bed. Or getting another pair of new balance with a little more room for an insole like Sole brand or Superfeet. I will call you if Radiology has anything more to say about your images. Also see handout on plantar fascial pain as some of these exercises might be helpful and I would ice your foot, holding the ice pack on with an Jaya wrap 2-3 times daily over the next few days. Follow-up if just not improved in a week. Medical Records Medical records reviewed: Yes I reviewed the patient's medical records Discharge Plan Discharge Clinical Impression: Pain of right midfoot Patient Disposition: Home, Self-Care Condition: Stable Additional Instructions: I wonder if you might be over compensating for some left hip pain causing some of this right foot pain. I would recommend getting more supportive footwear as discussed. Perhaps returning to those [facility] maybe with a softer foot bed. Or getting another pair of new balance with a little more room for an insole like Sole brand or Superfeet. I will call you if Radiology has anything more to say about your images. Also see handout on plantar fascial pain as some of these exercises might be helpful and I would ice your foot, holding the ice pack on with an Jaya wrap 2-3 times daily over the next few days. Follow-up if just not improved in a week. Prescriptions: No Action One-A-Day -1 27 mg iron- 800 mcg-235 mg capsule 1 cap PO .qd Qty: 90 3RF aspirin 81 mg tablet,delayed release (DR/EC) 81 mg PO QDAY Qty: 90 1RF DHA 200 mg capsule 200 mg PO DAILY Qty: 90 1RF calcium carbonate [Tums] 200 mg calcium (500 mg) tablet,chewable 200 mg PO BID metoclopramide HCl [Reglan] 5 mg tablet 10 mg PO Q6H PRN (Reason: nausea and vomiting) Qty: 90 1RF acetaminophen 500 mg Tablet 1,000 mg PO Q6H PRN (Reason: Pain) Qty: 30 0RF Unisom (doxylamine) 25 mg tablet 12.5 mg PO QHS PRN (Reason: nausea and vomiting) Qty: 45 2RF Follow Up/Referrals: Provider,Not a Local [Primary Care Provider, Family Practice] Stand Alone Forms: [employer] Info Instructions
--- NOTE | 2025-01-28 18:40 | CRLHL7_ITS ---
For Patients: As a result of the Century Cures Act, medical imaging exams and procedure reports are released immediately into your electronic medical record. You may view this report before your referring provider. If you have questions, please contact your health care provider. Indication: Arch and medial dorsal foot pain. Technique: Right foot 2 views. Comparison: None. Findings: Bones: Alignment is normal. No acute fracture or suspicious bone lesion. Joint spaces: Unremarkable. Soft tissues: Unremarkable. Impression: No evidence of an acute bony abnormality. Dictated by Nikolay Santiago MD @ 01/28/2025 7:36:05 PM (Electronically Signed)
--- NOTE | 2025-02-01 11:25 | PC.SOCIAL ---
Ballistician Consult: SW spoke with patient via phone. Patient discussed the hardships that she and her partner have faced over the past couple years financially. Patient explained all the ways she has been reaching out for support: [employer], [employer], Churches, etc, to assist with paying rent. Patient states currently they are only behind for the month of January. SW inquired about contacting the [facility] for support and patient states she has and has been denied for services. Patient explains that she is on SNAP and WIC. Patient discussed the challenges with finding jobs due to transportation, loss of ID's, and lack of jobs as many posting are 'ghost postings'. SW provided empathy for what patient is going through and validation for all the work she is doing to ensure that her family is getting their basic needs met. SW states that patient could try calling 211 to see if there are any other programs outside of the [facility] agencies that could provide support. Patient inquired about car seat resources for her 2 year old. SW discussed that patient could call insurance as typically children can receive a car seat through them if she hasn't received one in the last three years. Patient states she will do that. Patient explains that for transportation they have been using [employer] rides and that there are frustrations with those as sometimes they don't show up, but they do provide rides to the grocery store, which is helpful for her. Patient states that she is looking forward to meeting with a therapist next week and hopes that the depression meds will start working. Patient discussed her fears of CPS becoming involved due to the situation they are in. SW explained that from what the patient has said there isn't a need for CPS to be involved due to unstable housing. SW explained that even if patient were living with friends or in a skilled nursing, that would not warrant CPS involvement. Patient felt relieved to hear that and explains that is her biggest fear, her children being taken away. SW expressed validation. Patient had no concerns or quetions at this time and has SW's number to follow-up with.
== END 2025-01-28 19:44 | disposition home or self-care (01) ==
PROVIDERS: Emergency Provider Family Medicine
DX: M79.671 Pain in right foot (principal)
CPT/HCPCS: 73620; 99283; 99284

== ENCOUNTER 2025-02-09 11:25 | Outpatient (CLI) | payer BC, SELFPAY | END 2025-02-09 11:26 | disposition home or self-care (01) | LOC: NFLDREF 02-11 07:09 | PROVIDERS: PCP Family Medicine; Visit Provider Obstetrics & Gynecology | DX: Z34.93 Encounter for supervision of normal pregnancy, unspecified, third trimester (principal); R74.8 Abnormal levels of other serum enzymes; N89.8 Other specified noninflammatory disorders of vagina; Z3A.28 28 weeks gestation of pregnancy | CPT/HCPCS: 84450; 84460; 86592 ==

== ENCOUNTER 2025-03-12 14:53 | Outpatient (CLI) | payer BC, SELFPAY ==
[2025-03-12 15:07] VITALS: PULSE 79; O2SAT 97
[2025-03-12 15:12] VITALS: BP 129/68; PULSE 74
[2025-03-12 16:27] LABS: Amnisure Rom* Negative; Appearance Urine Clear (Clear)
[2025-03-12 17:03] LABS: Trichomonas No Trichomonas Seen (None Seen)
--- NOTE | 2025-03-12 19:55 | PC.OBNST ---
NST Note NST Note Start: 03/12/25 15:00 Freq: ONCE Status: Active Protocol: Document 03/12/25 17:57 FJZ (Rec: 03/12/25 19:55 FJZ [id number]) NST Note 3 Para (# of births) 1 EDC 05/05/25 Gestational Age In 32 Weeks & 2 Days Weeks & Days Patient Presented Contractions/cramping,Leaking fluid with Complaint(s) of If Pain, describe pelvic pain especially when standing and walking location Reactive Yes RN Nitish Johnson RN Date 03/12/25 Reactive Yes MELISSA Chacon RN Date 03/12/25 OB NST charge Yes Complete NST Note Yes via Write Note The provider's electronic signature indicates the NST is reactive/appropriate for gestational age. *Note to provider: If an addendum is required, open the patient's chart and click on the note under the Nurse/Allied Health tab.
== END 2025-03-12 17:57 | disposition home or self-care (01) ==
LOC: OB OUT 14:54 → OB 14:55
PROVIDERS: PCP Family Medicine; Visit Provider Advanced Practice Midwife
DX: O47.1 False labor at or after 37 completed weeks of gestation (principal); Z3A.32 32 weeks gestation of pregnancy
CPT/HCPCS: 59025; 81003; 84112; 87210; G0463

== ENCOUNTER 2025-03-20 12:58 | Outpatient (CLI) | payer BC, SELFPAY ==
--- NOTE | 2025-03-20 13:00 | CRLHL7_ITS ---
For Patients: As a result of the Century Cures Act, medical imaging exams and procedure reports are released immediately into your electronic medical record. You may view this report before your referring provider. If you have questions, please contact your health care provider. OB ULTRASOUND BIOPHYSICAL PROFILE, 03/20/2025 CLINICAL HISTORY: BMI. COMPARISON: 02/01/2025. TECHNIQUE: Real time porras scale imaging of the fetus was performed. Transabdominal imaging performed. FINDINGS: MICHELLE by US: 05/02/2025. GA: 33 weeks 6 days. Gestation: Single. Cervix: Not visualized. Positioning: Breech. BIOPHYSICAL PROFILE: Gross Body Movements: 2 Tone: 2 Respiratory Activity: 2 Amniotic Fluid: 2 Total Score: 8 Placenta: Technique: TA. Placenta Position: Posterior. BIOMETRY: BPD: 8.7 cm, 35 weeks 1 day. 80% HC: 32.0 cm, 36 weeks 1 day. 72% AC: 32.1 cm, 36 weeks 0 days. 96% FL: 6.3 cm, 32 weeks 5 days. 15% FL/AC: 19.72% HC/AC: 1.00 EFW: 25.78 g, 5 lb 11 oz. age by this US: 35 weeks 0 days. MICHELLE by this US: 04/24/2025. Percentile by MICHELLE: 78% IMPRESSION: 1. Normal biophysical profile 04/14. 2. Sonographic gestational age 35 weeks 0 days and sonographic due date 04/24/2025. Sonographic age is 8 days ahead of the clinical age. 3. Estimated weight 78th percentile. Abdominal circumference 96th percentile. Robert Neal M.D. Diagnostic Radiologist [email or web address] Transcribed: 9:22 am DW/Dictated by: Robert Neal MD @ 03/21/2025 6:45:00 AM (Electronically Signed)
== END 2025-03-20 12:59 | disposition home or self-care (01) ==
LOC: US 12:59
PROVIDERS: PCP Family Medicine; Visit Provider Obstetrics & Gynecology
DX: O99.213 Obesity complicating pregnancy, third trimester (principal); Z68.42 Body mass index [BMI] 45.0-49.9, adult; Z3A.33 33 weeks gestation of pregnancy
CPT/HCPCS: 76816; 76819

== ENCOUNTER 2025-04-10 15:03 | Outpatient (CLI) | payer BC, SELFPAY ==
[2025-04-11 13:51] LABS: Strep B DNA Probe Negative (Negative)
[2025-04-11 14:11] LABS: Strep B Susceptibility Needed? No
== END 2025-04-10 15:04 | disposition home or self-care (01) ==
LOC: NFLDREF 15:03
PROVIDERS: PCP Family Medicine; Visit Provider Obstetrics & Gynecology
DX: Z34.83 Encounter for supervision of other normal pregnancy, third trimester (principal)
CPT/HCPCS: 87081; 87653

== ENCOUNTER 2025-04-21 19:55 | Outpatient (CLI) | payer BC, SELFPAY ==
[2025-04-21 21:41] VITALS: BP 128/63; PULSE 87
[2025-04-21 21:42] VITALS: PULSE 93; O2SAT 97
[2025-04-21 21:48] VITALS: TEMP 36.9
[2025-04-21] MEDS: LACTATED RINGERS 1000 ML 1,000 ML IV (22:41)
[2025-04-21 22:52] LABS: Appearance Urine Clear (Clear)
[2025-04-21 23:03] LABS: Cannabinoid Screen Urine POSITIVE (Negative); Methamphetamines Screen Urine Negative (Negative); Tricyclic Antidepressant Urine Negative (Negative)
--- NOTE | 2025-04-22 01:27 | PC.OBNST ---
NST Note NST Note Start: 04/21/25 21:22 Freq: ONCE Status: Active Protocol: Document 04/21/25 23:54 CHAVA (Rec: 04/22/25 01:27 CHAVA No Response) NST Note 3 Para (# of births) 1 EDC 05/02/25 Gestational Age In 38 Weeks & 4 Days Weeks & Days Patient Presented Contractions/cramping with Complaint(s) of Reactive Yes Appropriate for Yes Gestational Age MELISSA Richey, MELISSAC Date 04/22/25 Reactive Yes Appropriate for Yes Gestational Age MELISSA Simental, RN Date 04/22/25 OB NST charge Yes Complete NST Note Yes via Write Note The provider's electronic signature indicates the NST is reactive/appropriate for gestational age. *Note to provider: If an addendum is required, open the patient's chart and click on the note under the Nurse/Allied Health tab.
== END 2025-04-21 23:59 | disposition home or self-care (01) ==
LOC: OB OUT 20:57 → OB 20:59
PROVIDERS: Absent Provider Obstetrics & Gynecology; PCP Family Medicine; Visit Provider Obstetrics & Gynecology
DX: O47.1 False labor at or after 37 completed weeks of gestation (principal); Z3A.38 38 weeks gestation of pregnancy
CPT/HCPCS: 59025; 80306; 81001; 81003; 87086; G0463; A9270; J7120

== ENCOUNTER 2025-04-25 05:50 | Inpatient (IN) | payer BC, SELFPAY ==
[2025-04-25] VITALS (24 sets, daily range): BP systolic 83–134; BP diastolic 51–83; PULSE 59–88; RESP 16–20; TEMP 36.4–37; O2SAT 92–100; BMI 46.5
[2025-04-25 06:43] LABS: Hematocrit 37.5 % (33.0-51.0); Hemoglobin* 12.8 gm/dL (12.0-16.0); Immature Granulocytes Pct Auto 1.4 %; Mean Corpuscular HGB Conc 34 gm/dL (32-36); Mean Corpuscular Hemoglobin 29 pg (26-34); Mean Corpuscular Volume 86 fL (80-100); RDW Coefficient of Variation % 13.8 % (11.5-15.5); Red Blood Count 4.36 m/uL (4.00-5.20); White Blood Count* 13.14 K/uL (4.50-11.00)
[2025-04-25] MEDS: LACTATED RINGERS 1000 ML 1,000 ML IV (06:46)
[2025-04-25 06:47] LABS: Immature Granulocytes Abs Auto 0.20 K/uL (0.00-0.30); Lymphocytes Absolute Auto 2.60 K/uL (0.90-2.90); Slide Review Reflex No
--- NOTE | 2025-04-25 07:17 | W.PM.LDBA ---
Subjective History of Present Illness Date Seen: 04/25/25 Narrative: Patient is being admitted to Labor and Delivery for repeat delivery. She is a 24 year old at 39 0/7 weeks gestation. Her full history and physical was dictated by Dr. Butt on 04/10/25. Please see this for details. Patient today states to be doing well w/o specific concerns or complaints. Specific Issues/Plans H&P by Dr. Butt on 04/10/2025 # Obesity, Pre- BMI 46.6? 20-week level II detailed US with MFM: level 1 FAS done initially, MFM referral placed on 12/16/24 to re-evaluate structures not well seen ? Referral to data architect manager: ordered ?Referral to anesthesia? Weekly testing starting at 34 weeks? Growth US at 28 and 34 weeks? Delivery recommended: 39 0/7-39 6/7 weeks.? Pre- BMI>45 then Refer to OBGYN # Hx elective C/S. Will likely desire repeat C/S. Desires concurrent permanent sterilization. Federal tubal consent form signed on 01/17/2025. Repeat C/S with bilateral salpingectomy scheduled for 04/25/2025. # Hx THC use. Stopped prior to +THC at [facility] Daily use for nausea noted at visit on 11/22/2024. Patient would like to quit if her nausea can be improved by other methods. Will try omeprazole delayed release 40 mg daily for reflux, as this might be contributing to her symptoms. Prescribed metoclopramide As of 02/09/2025, she is not taking omeprazole. This was again prescribed. Seriously cut back as of 02/22, taking omeprazole and reglan. declined zofran. # Anxiety/Depression # Passive Suicidal ideation - notes daughter as barrier to action. Therapy referral placed at [facility] Prescribed fluoxetine on - encouraged to start taking on 03/06 Crisis phone line given, strict ED precautions # Unstable housing - losing apartment 1 month after delivery, considering nursing home # Transportation issues - no vehicle Has established psychiatric social worker supervisor # Hep B non-immune # Intermittently elevated transaminases 09/21/24: AST 26, ALT 56 02/09/25: AST 43, ALT normal at 33 Imagin12/16/2024 FAS: EFW 39%, fundal posterior placenta without previa, normal amniotic fluid volume, normal cervix, all anatomy visualized, except cavum septum pellucidum, nose/lips and spine are suboptimal views. Recommend follow-up in four weeks. 01/09/2025 F/U: EFW 46%, a/c 56%, MVP 7.8 cm, no anomalies visualized.. RVOT, LVOT, and three-vessel view sub adequately visualized. Follow-up scheduled with [facility] in three weeks to reassess anatomy and assess growth. 02/01/25: Level 2 anatomy completed and normal. EFW 65%, AC 79%, posterior placenta, SDP 7.5 cm. Posterior placenta, no previa. 03/20/2025: Breech, EFW 2578 g or 5 lb 11 oz (78%), BPD 80%, HC 72%, AC 96%, FL 14%, SDP 5.2 cm COVID: wants to think about it Flu: 09/21/2024 TDAP: 02/22/25 Mental Health: Poorly controlled - recommend she start fluoxetine, 03/06/25 OB - Problem Based A/P Additional Plan (1) History of section complicating : Status: Acute Plan 1. Repeat section and bilateral salpingectomy. Confirmed plan with patient this morning. Federal tubal consent form signed and in chart. Reviewed informed consent and this was signed by patient this am. 2. Recommend post prophylactic Lovenox, will plan to start after 12 hours from surgery. 3. Normal hemoglobin and platelets. 4. FU on mood . OB Result Labs Labs: Hemoglobin: 12.8 Platelets: 338,000 OB Exam Physical Exam Vital signs: Temp Pulse Resp BP 98.6 F 88 16 134/71 04/25/25 06:10 04/25/25 06:10 04/25/25 06:10 04/25/25 06:10 Detailed Labor and Delivery Exam Patient Gravid: yes Fetus (Single) Heart Rate Baseline: 130 Monitor Accelerations: Present Monitor Decelerations: None Shelter Variability: Moderate (6-25)
[2025-04-25] MEDS: LACTATED RINGERS 1000 ML 1,000 ML 125 ML IV (07:55)
--- NOTE | 2025-04-25 08:52 | P.ANES_ITS ---
Anesthesia Charges Start Date/Time Anesthesia Start Date: 04/25/25 Anesthesia Start Time: 07:27 Stop Date/Time Anesthesia Stop Date: 04/25/25 Anesthesia Stop Time: 09:19 Coding CPT Codes CPT Codes: ANESTH CS DELIVERY - 48443 ([id number]) P3 - PATIENT W/SEVERE SYS DISEASE, QK - SENIOR ORACLE APPLICATIONS DEVELOPER 2-4 CNCRNT ANES PROC, QX - PROJ MGR SVC W/ MD MED DIRECTION
--- NOTE | 2025-04-25 08:52 | W.ANESCHARGE ---
Anesthesia Charges Start Date/Time Anesthesia Start Date: 04/25/25 Anesthesia Start Time: 07:27 Stop Date/Time Anesthesia Stop Date: 04/25/25 Anesthesia Stop Time: 09:19 Coding CPT Codes CPT Codes: ANESTH CS DELIVERY - 54939 ([id number]) P3 - PATIENT W/SEVERE SYS DISEASE, QK - MAINTENANCE CONSTRUCTION HELPER 2-4 CNCRNT ANES PROC, QX - WEDDING CONSULTANT SVC W/ MD MED DIRECTION
--- NOTE | 2025-04-25 08:53 | P.NB_ITS ---
Nerve Block Nerve Block Time Seen by Provider: 09:10 Date Seen: 04/25/25 Type of block requested by surgeon for post-operative analgesia: TAP Side: bilateral Time out performed: Yes Verification of patient name: Yes Verification of date of : Yes Site marking: site marked Name of person performing procedure: Edison Mclean Continuous monitoring Was continuous monitoring of O2 sat, B/P, quality assurance monitor body, recorded every 15 minutes?: Yes Procedure Checklist: sterile prep, needles and gloves Ultrasound guided. Images saved: Yes Medications given in 5ml increments after negative aspiration: Marcaine %: 0.25 mL: 30 Needle gauge: 20 and Exparel mL: 10 Needle gauge: 20 Patient tolerated procedure well: Yes Additional comments: Injected in 5 mL increments after negative aspiration Block Charges Block Charge (with Pro Fee): TAP Bilateral Use of Ultrasound Machine for Block: Yes- US Guidance/pain block
--- NOTE | 2025-04-25 09:18 | P.ANES_ITS ---
Anesthesia Charges Start Date/Time Anesthesia Start Date: 04/25/25 Anesthesia Start Time: 07:27 Stop Date/Time Anesthesia Stop Date: 04/25/25 Anesthesia Stop Time: 09:19 Coding CPT Codes CPT Codes: ANESTH CS DELIVERY - 99898 ([id number]) QK - MEASUREMENT OPERATOR 2-4 CNCRNT ANES PROC, QX - ORACLE ETL DEVELOPER SVC W/ MD MED DIRECTION, P3 - PATIENT W/SEVERE SYS DISEASE
--- NOTE | 2025-04-25 09:18 | W.ANESCHARGE ---
Anesthesia Charges Start Date/Time Anesthesia Start Date: 04/25/25 Anesthesia Start Time: 07:27 Stop Date/Time Anesthesia Stop Date: 04/25/25 Anesthesia Stop Time: 09:19 Coding CPT Codes CPT Codes: ANESTH CS DELIVERY - 01768 ([id number]) QK - SEED ANALYST 2-4 CNCRNT ANES PROC, QX - EDGE SETTER SVC W/ MD MED DIRECTION, P3 - PATIENT W/SEVERE SYS DISEASE
--- NOTE | 2025-04-25 10:33 | PM.OBPRCCS ---
OB Delivery Proc Additional Procedures Tubal Ligation at the time of : Yes Other: No Procedure Date of procedure: 04/25/25 Pre-op diagnosis: IUP at 39 0/7 weeks. Previous section x1, desiring repeat. Family planning. Post-op diagnosis: same Procedure Done: Global Will [facility] bill your pro fee for this procedure?: Yes Blood Loss Measurement Type: QBL (175mL) Bakri Used: No IV fluids (mL): 800 Urine Output (mL): 150 Urine Output Comment: Concentrated at end of procedure Surgeon: Bulmaro Bains MD Industrial Machine Assembler: Alayna Ambrocio Anesthesia Type: Spinal Findings: FINDINGS: Live-born female infant, vertex presentation, Apgars 9 and 9 at 1 and 5 minutes respectively. weight pending. Omental adhesions to anterior abdominal wall. Procedure Name: Repeat low transverse section, bilateral salpingectomy, lysis of adhesions. Procedure Description: PROCEDURE: After obtaining informed consent, the patient was taken to the operating room where spinal anesthesia was obtained and found to be adequate. She was prepared and draped in the normal sterile fashion in the dorsal supine position with a leftward tilt. A Pfannenstiel skin incision was made with a scalpel along the line of the patient's previous Pfannenstiel scar. This incision was carried down to the underlying layer of fascia with the scalpel and Bovie. The fascia was incised in the midline and the incision extended laterally. The superior aspect of the fascial incision was grasped with Mary Ann clamps, elevated and the underlying rectus muscles dissected off sharply with Wright scissors. The rectus muscles were then in the midline. Peritoneum entered bluntly. The Yogesh O retractor was then placed into the incision. The lower uterine segment was then incised in a transverse fashion with the scalpel. Upon entry into the uterus, meconium stained amniotic fluid was noted. The uterine incision was extended cephalo caudally with blunt finger fractionation. The infant's head was delivered atraumatically, followed by the remainder of the 's body. The nose and mouth were suctioned with the bulb suction. The cord was doubly clamped and cut, after 30 seconds of delayed cord clamping and the infant was handed off the field for evaluation. The placenta was delivered spontaneously with umbilical cord traction and fundal massage. The uterus was exteriorized and was cleared of all clots and debris. The uterine incision was reapproximated in a running locking fashion with a 0 Vicryl suture. A 2nd layer of the same suture was used to imbricate in horizontal fashion. Attention placed to the right fallopian tube. Utilizing 2 Cherelle forceps the fallopian tube was lifted and with LigaSure handheld device the mesosalpinx starting from fimbrial end was sequentially clamped, coagulated and cut until cornual end. Hemostasis secured. Specimen sent to pathology. Same procedure was performed on the left fallopian tube and hemostasis secured as well. The uterus was replaced intraabdominally. Patient had been complaining of pain, described mostly as low back pain. Anesthesia diligently gave IV medication and we were able to continue procedure. I also suggested removal of the bump on the right side to see if this helped back pain. The gutters were inspected and cleared of blood clots. All instruments and retractors were removed. Omental adhesion noted to the anterior abdominal wall/peritoneum preventing safe closure of fascia and utilizing LigaSure handheld device, omental adhesion closest to the anterior wall was clamped, coagulated and cut-releasing adhesion. Hemostasis secured. The anterior peritoneum was reapproximated in a running fashion with a 3-0 Vicryl suture. The subfascial tissues were carefully inspected and hemostasis assured. The fascia was reapproximated in a running fashion with a looped 0 PDS suture. The subcutaneous tissues were copiously irrigated. Hemostasis was assured. The subcutaneous fat layer was reapproximated with continuous sutures of 3-0 Vicryl, in 2 layers. The skin was closed in a subcuticular fashion with 4-0 Monocryl. LiquiBand and dressing were applied. The patient tolerated the procedure well. Sponge, lap, needle, and instrument counts were reported as correct x2. The patient was taken to the recovery room, awake, and in stable condition. She did receive 3 grams of IV Ancef preoperatively. Complications: None Pathology: specimen obtained, sent to pathology (Fallopian tubes x2, placenta ) Surgery Debrief Performed: Yes Condition: stable Disposition: floor [place] Infant total score - 1 minute: 9 total score - 5 minute: 9
[2025-04-25 10:37] LABS: Cannabinoid Screen Urine POSITIVE (Negative); Methamphetamines Screen Urine Negative (Negative); Tricyclic Antidepressant Urine Negative (Negative)
[2025-04-25] MEDS: ACETAMINOPHEN 500 MG TABLET 1000 MG PO (15:56)
[2025-04-25] MEDS: ENOXAPARIN 40 MG/0.4 ML INJ SUBCUT (21:46)
[2025-04-26 00:03] VITALS: BP 122/77; PULSE 71; RESP 16; TEMP 36.9; O2SAT 98
[2025-04-26] MEDS: ACETAMINOPHEN 500 MG TABLET 1000 MG PO ×3 (00:12→18:26)
[2025-04-26 03:40] VITALS: BP 133/84; PULSE 70; RESP 16; TEMP 36.6; O2SAT 98
[2025-04-26 06:15] LABS: Hemoglobin* 12.1 gm/dL (12.0-16.0)
--- NOTE | 2025-04-26 08:01 | P.OBPN_ITS ---
OB - PN:Subj Subjective Date Seen: 04/26/25 Narrative: Carolynn is a 24 y.o. G 3 P 2 who was admitted to L & [facility] for repeat section. ?She had a section that was uncomplicated. The patient feels well. ?The pain is well controlled with current medications. ?She has no new com plaints. ?She is breast feeding and reports things are going well. the patient has done well.? Vitals have been stable.? She has remained afebrile.? Has a good appetite, is tolerating a general diet. ?She is voiding without difficulty.? She is passing gas and has not had a bowel movement.? She is ambulating and denies any dizziness.? Has small amount of rubra lochia. Problems: no OB - PN: Obj Exam Physical Exam: Vital signs: Temp Pulse Resp BP Pulse Ox O2 Del Method 97.8 F 70 16 133/84 98 Room Air 04/26/25 03:40 04/26/25 03:40 04/26/25 03:40 04/26/25 03:40 04/26/25 03:40 04/26/25 03:40 Narrative: GENERAL APPEARANCE:? normal affect, alert, no distress MOOD:? appropriate CHEST:? clear to auscultation HEART:? regular rate and rhythm ABDOMEN:? soft, non-tender the uterine fundus is At Umbilicus, Midline and is appropriate for the stage of recovery. EXTREMITIES:? normal and no edema INCISION: Dressing in place; clean, dry, and intact OB - PN: Obj Data Labs Labs: Laboratory Results - last 24 hr 04/25/25 04/25/25 04/26/25 06:30 10:20 05:54 Hgb 12.1 Urine Opiates Screen Negative Ur Buprenorphine Scrn Negative Ur Oxycodone Screen Negative Urine Methadone Screen Negative Ur Barbiturates Screen Negative U Tricyclic Antidepress Negative Ur Phencyclidine Scrn Negative Ur Amphetamines Screen Negative U Methamphetamines Scrn Negative U Benzodiazepines Scrn Negative Urine Cocaine Screen Negative U Marijuana (THC) Screen POSITIVE A Ur Drug Screen Comment See Note Blood Type O Positive Antibody Screen NEGATIVE OB - PN: A/P Delivery Assessment and Plan (1) History of section complicating : Status: Acute (2) History of marijuana use: Problem details: Trying to wean off, still using some for control of nausea and vomiting Status: Chronic (3) BMI 45.0-49.9, adult: Problem details: Elevated BMI Status: Chronic (4) Anxiety: Problem details: Referral to counseling 01/2025 Status: Chronic (5) Depression: Problem details: fluoxetine ordered, has not started as of PPD1 Status: Chronic Plan Comments: routine care Postop care , may see if needed? Hgb 12.1. ? Social work will continue to meet with patient while in hospital Anticipate discharge home tomorrow or Thursday
[2025-04-26 08:26] VITALS: BP 128/82; PULSE 69; RESP 16; TEMP 36.7; O2SAT 98
[2025-04-26] MEDS: DOCUSATE SODIUM 100 MG CAPSULE PO (09:33)
--- NOTE | 2025-04-26 12:09 | PC.SOCIAL ---
Addendum entered and electronically signed by Nya Askew LCSW 04/26/25 15:09: SW met with patient and discussed resources for baby. Patient states that she has a bassinet and pack and play and car seats. Patient also reports she has diapers, but would be open to more. Patient explains she has a ride home when ready for discharge. Patient discussed frustrations that she had the last couple of months and how moving feels like it will be a good, fresh start for them. Patient inquired about section 8 waitlists and social sciences chair discussed [employer] as a place to check as well as going to the specific [facility] that they are looking into to see if their waitlists are open or not. Patient had no other questions or concerns at this time. Original Note: Social Service Consult: SW met with patient alone to check-in and discuss CPS report. Patient states that things are going a lot better than when SW and her talked earlier this summer. Patient explains that her cousin asked them to move in with her in [place] and they will be moving there 05/06. Patient states that her partner was finally able to get his license and has been able to apply for jobs, had one lined up but now they are moving. Patient discussed her experience and how the wasn't great, but having her daughter with her and not in the NICU has been amazing. Patient and SW discussed THC use. Patient expresses that she has been tapering and hasn't smoked it a month, but found it challenging to quit altogether without tapering due to the symptoms that arose. Patient also explained she felt it was a coping tool during the hardships they were experiencing and it helped keep her alive. SW expressed validation and empathy for patient and what she experienced. SW discussed the need to make a CPS report and explained what the visit from them would look like. Patient explained that it sounds similar to what she had happened last time. SW explained that someone will likely connect with her in the next few days or 5-7 at the latest. Patient verbalized understanding. Patient's partner and daughter arrived and patient asked that SW come back as she'd like to talk more. SW called CPS at 930 and made verbal report. SW also submitted written report.
[2025-04-26 17:20] VITALS: BP 127/77; PULSE 68; RESP 16; TEMP 36.8; O2SAT 97
[2025-04-26] MEDS: ENOXAPARIN 40 MG/0.4 ML INJ SUBCUT (20:54)
[2025-04-26] MEDS: IBUPROFEN 600 MG TABLET PO (20:54)
[2025-04-26 21:02] VITALS: BP 123/82; PULSE 70; RESP 18; TEMP 36.6; O2SAT 98
[2025-04-27 04:18] VITALS: BP 136/85; PULSE 71; RESP 16; O2SAT 99
[2025-04-27] MEDS: ACETAMINOPHEN 500 MG TABLET 1000 MG PO (06:37)
--- NOTE | 2025-04-27 08:22 | P.DS_ITS ---
DS: Providers Provider Date Seen: 04/27/25 Date of admission: 04/25/25 05:50 Primary care physician: Josefa Olvera MD Admitting Clinician: Jolie Bains MD Consults: 04/25/25 06:12 Consult to Fitness And Wellness Instructor [CONS] Routine Comment: Reason for Consult:: Social Service Consult Attending Physician on discharge: Steve Shaffer CNM Date of Discharge: 04/27/25 DS: Diagnosis Discharge Diagnosis (1) care following delivery: Status: Acute (2) Lactating mother: Status: Acute Exam Narrative: Exam Narrative: VSS. ?Afebrile GENERAL APPEARANCE: ?normal affect, alert, no distress MOOD: ?appropriate HEENT: normocephalic, neck supple, full ROM CHEST: ?Symmetrical chest wall movement. ?Normal respiratory effort. ?Clear to auscultation HEART: ?regular rate and rhythm ABDOMEN: ?soft, non-tender. Uterine fundus is firm, at Umbilicus, Midline and is appropriate for the stage of recovery. ?Bowel sounds present. EXTREMITIES: ?normal and no edema SKIN: warm, dry. ? ?Incision clean/dry/well approximated. ?No signs of infection noted. Const: Vital Signs, click to edit/add: Vital Signs - 24 hr 04/26/25 08:26 04/26/25 17:20 04/26/25 21:02 Temperature 98.0 F 98.3 F 97.9 F Pulse Rate [Pulse Oximeter] 69 68 70 Respiratory Rate 16 16 18 Blood Pressure [Ri ght Arm] 128/82 127/77 123/82 Pulse Oximetry 98 97 98 Oxygen Delivery Me thod Room Air Room Air Room Air 04/27/25 04:18 Temperature Pulse Rate [Pulse Oximeter] 71 Respiratory Rate 16 Blood Pressure [Ri ght Arm] 136/85 Pulse Oximetry 99 Oxygen Delivery Me thod Room Air Documenting provider has reviewed patient's vital signs: yes OB - DS: Summary Hospital Course Hospital Course: Carolynn is a 24 y.o. who was admitted to L & D for repeat C/S. ?She had an uncomplicated .?The patient feels well. ?The pain is well controlled with current medications. ?She has no new complaints. ?She is breast feeding and reports things are going well.? the patient has done well.? Vitals have been stable.? She has remained afebrile.? Has a good appetite, is tolerating a general diet. ?She is voiding without difficulty.? She is passing gas and has not had a bowel movement.? She is ambulating and denies any dizziness.? Has Small amount of rubra lochia. ?She had a tubal ligation for prevention.. Peripartum Data Infant delivery method: Repeat Section Procedures: Procedures Operation Date: 04/25/25 07:15 Actual Procedure Side Surgeon p Repeat Low Transverse Section, Bilateral Salpingectomy Jolie Bains MD Procedures: tubal ligation/salpingectomy complications: none Gender: Female Discharge Plan: Home Status at Discharge Functional status at discharge: independent ambulation Overall status at discharge: patient is progressing back to baseline Time Spent with Patient Time attestation: Total time spent providing and/or coordinating discharge services: Time spent: Less than 30 minutes Discharge Plan Discharge Disposition: Home, Self-Care Date of Admission: 04/25/25 05:50 Attending Provider on Discharge: Steve Shaffer Primary Care Provider: Josefa Olvera Condition: Stable Anticipated Discharge Date/Time: 04/27/25 12:00 Discharge Medications: New acetaminophen 500 mg Tablet 1,000 mg PO Q6H PRN (Reason: Pain) Qty: 0 0RF docusate sodium 100 mg Capsule 100 mg PO DAILY Qty: 90 0RF ibuprofen 600 mg Tablet 600 mg PO Q6H PRN (Reason: Pain) Qty: 60 0RF oxycodone 5 mg Tablet 5 - 10 mg PO Q4H PRN (Reason: Pain) Qty: 10 0RF Continued DHA 200 mg capsule 200 mg PO DAILY Qty: 90 1RF metoclopramide HCl [Reglan] 5 mg tablet 10 mg PO Q6H PRN (Reason: nausea and vomiting) Qty: 90 1RF prednisolone acetate 1 % drops,suspension 1 drp ophthalmic (eye) QDAY PRN Patient Comments: SHAKE LIQUID AND INSTILL 1 DROP IN BOTH EYES TWICE DAILY FOR 1 WEEK acetaminophen 500 mg Tablet 1,000 mg PO Q6H PRN (Reason: Pain) Qty: 30 0RF fluoxetine 20 mg capsule 20 mg PO QDAY Qty: 30 2RF Discharge Orders: Discharge Order (Routine); Ordered 04/27/25 Ordered By: Steve Shaffer Patient Education: OB Over the Counter Medication Information, OB /Breast Feeding Additional Instructions: Discharge instructions were reviewed with the patient including signs and symptoms of infection and home going medications Lifting Restrictions: 20 pounds for 6 weeks No not submerge incision under water X 2 weeks? Nothing vaginally for 6 weeks: no tampons or intercourse Do not drive while taking narcotic pain medication(s) Off Work or School for 8 weeks 2-week visit: incision check, discuss infant feeding concerns, review control options and screen for anxiety/depression. 6-week visit for an annual exam. consultation services are available to all mothers and babies for the first year after delivery.? To make an appointment, please call [phone]. Activity Level: Activity as Tolerated Discharge Diet: Regular Follow Up Appointments: [facility] [Provider Group] Forms: Patient Belongings, MyHealth Info Instructions
[2025-04-27 11:00] VITALS: BP 130/82; PULSE 76; RESP 16; TEMP 36.8; O2SAT 98
== END 2025-04-27 15:00 | disposition home or self-care (01) | DRG 540 ==
PROVIDERS: Admitting Provider Obstetrics & Gynecology; PCP Family Medicine; Visit Provider Obstetrics & Gynecology
PROC: 10D00Z1 Extraction of Products of Conception, Low, Open Approach (ICD-10-PCS; CPT 59514; principal; 2025-04-25 07:15)
DX: O34.211 Maternal care for low transverse scar from previous cesarean delivery (principal); G89.18 Other acute postprocedural pain; O99.344 Other mental disorders complicating childbirth; F41.9 Anxiety disorder, unspecified; F32.A Depression, unspecified; O99.324 Drug use complicating childbirth; F12.90 Cannabis use, unspecified, uncomplicated; Z59.811 Housing instability, housed, with risk of homelessness; Z59.82 Transportation insecurity; Z91.51 Personal history of suicidal behavior; O99.214 Obesity complicating childbirth; E66.9 Obesity, unspecified; Z30.2 Encounter for sterilization; Z37.0 Single live birth; Z3A.39 39 weeks gestation of pregnancy
CPT/HCPCS: 01961; 36415; 64488; 76815; 76942; 80306; 85018; 85025; 86592; 86850; 86900; 86901; 88302; 88307; A4314; A9270; J0665; J0666; J0690; J1100; J1650; J1885; J2371; J2405; J2590; J2704; J3010; J3490; J7120